=== PATIENT | male | born 1980 | race Caucasian/White ===

== ENCOUNTER 2016-09-28 19:32 | Emergency (ER) | payer MEDICAID ==
--- NOTE | 2016-09-28 19:56 | ERPHSYRPT ---
- History of Present Illness Time Seen by Provider: 09/28/16 19:48 Source: patient Exam Limitations: no limitations Patient Subjective Stated Complaint: pt states he has been having pain inhis shoulder and numbness in his lower arm and hand sine approx 0500. denies any recent injury Triage Nursing Assessment: pt alert and oriented, answsers questions approp. pt ambulatory with steady gain noted. respirations nonlabored with lungs cta. pt reports pain in rt shoulder with numbness in rt lower arm and hand. radial pulse and cap refill wnl. rom in rt shoulder, rt arm, and hand wnl. Physician History: pt states he has been having pain inhis shoulder and numbness in his lower arm and hand sine approx 0500. denies any recent injury. no headache, no nausea, vomiting fever, Occurred: this morning Method of Injury: unknown Quality: constant Severity of Pain-Max: mild Severity of Pain-Current: mild Extremities Pain Location: hand: right (tingling and numbness) Modifying Factors: Improves With: nothing Associated Symptoms: none Allergies/Adverse Reactions: cyclobenzaprine [From Flexeril] Allergy (Mild, Verified 09/28/16 19:47) Nausea ketorolac [From Toradol] Allergy (Mild, Verified 09/28/16 19:47) Nausea mirtazapine [From Remeron] Adverse Reaction (Mild, Verified 09/28/16 19:47) DRY HEAVE Home Medications: Divalproex Sodium [Depakote] 500 mg PO BID 11/28/15 [History] Alprazolam 1 mg [Xanax 1 mg] 1 mg PO TIDPRN 02/28/16 [History] Gabapentin [Neurontin] 800 mg PO TID 02/28/16 [History] Hx Tetanus, Diphtheria Vaccination/Date Given: Yes Hx Influenza Vaccination/Date Given: No Hx Pneumococcal Vaccination/Date Given: No Immunizations Up to Date: Yes - Review of Systems Constitutional: No Symptoms Eyes: No Symptoms Ears, Nose, & Throat: No Symptoms Respiratory: No Symptoms Cardiac: No Symptoms Abdominal/Gastrointestinal: No Symptoms Musculoskeletal: Neck Pain Skin: No Symptoms Neurological: Other (tingling on right hand) - Past Medical History Pertinent Past Medical History: No Neurological History: No Pertinent History ENT History: No Pertinent History Cardiac History: No Pertinent History Respiratory History: No Pertinent History Endocrine Medical History: No Pertinent History Musculoskeletal History: Arthritis, Degenerative Disk Disease GI Medical History: Ulcer History: No Pertinent History Psycho-Social History: Anxiety, Bipolar, Depression Male Reproductive Disorders: No Pertinent History Other Medical History: CHRONIC DRUG ABUSER - Past Surgical History Past Surgical History: No Neuro Surgical History: No Pertinent History Cardiac: No Pertinent History Respiratory: No Pertinent History Gastrointestinal: No Pertinent History Genitourinary: No Pertinent History Musculoskeletal: No Pertinent History Male Surgical History: Vasectomy Other Surgical History: vasectomy - Social History Smoking Status: Current every day smoker How long have you smoked: 20 years Exposure to second hand smoke: Yes Alcohol Use: Socially Drug Use: marijuana, methamphetamines, narcotics Patient Lives Alone: No Significant Family History: no pertinent family hx - Nursing Vital Signs Nursing Vital Signs: Initial Vital Signs Temperature 97.5 F Temperature Source Oral Pulse Rate 101 Respiratory Rate 18 Blood Pressure [Left Arm] 128/81 Pain Intensity 6 - Physical Exam General Appearance: no apparent distress Eyes, Ears, Nose, Throat Exam: normal ENT inspection Neck Exam: normal inspection Cardiovascular/Respiratory Exam: chest non-tender Shoulder Exam: normal inspection, non-tender, no evidence of injury Hand Exam: normal inspection, no evidence of injury Neuro/Tendon Exam: normal sensation, normal motor functions, normal tendon functions, no evidence tendon injury, No motor deficit, No sensory deficit, No no response to pain, No withdraws to pain, No tendon function deficit, No tendon injury visualized Mental Status Exam: alert, oriented x 3, cooperative SpO2: 99 Oxygen Delivery: Room Air - Course Nursing assessment & vital signs reviewed: Yes Ordered Tests: Medication Summary Discontinued Medications Generic Name Dose Route Start Last Admin Trade Name Ruddy PRN Reason Stop Dose Admin Orphenadrine Citrate 60 mg 09/28/16 20:01 09/28/16 20:05 Norflex 60 Mg/2 Ml IM 09/28/16 20:02 60 mg STAT ONE Administration Orphenadrine Citrate Confirm 09/28/16 20:04 Norflex 60 Mg/2 Ml Administered 09/28/16 20:05 Dose 60 mg .ROUTE .STK-MED ONE - Progress Progress: unchanged Counseled pt/family regarding: diagnosis, need for follow-up - Departure Time of Disposition: 20:00 Departure Disposition: Home Clinical Impression: Numbness and tingling in right hand Condition: Stable Critical Care Time: No Referrals: BOURGASSER,GENE A [Primary Care Provider] - Followup in 3 days w/ PCP Additional Instructions: Continue all your home medications. gabapentin should help relieve your tingling in your right hand. follow up with Dr Hua on saturday
[2016-09-28] MEDS ORDERED: Norflex 60 MG/2 ML IM ONE (20:01)
[2016-09-28] MEDS ORDERED: Norflex 60 MG/2 ML ONE (20:04)
[2016-09-28 20:25] VITALS: BP 134/64; PULSE 102; O2SAT 98
== END 2016-09-28 20:25 | disposition home or self-care (01) ==
LOC: ED 19:32
DX: R20.0 Anesthesia of skin (principal); R20.2 Paresthesia of skin
CPT/HCPCS: 96372; 99284; J2360

== ENCOUNTER 2017-07-01 13:34 | Emergency (ER) | payer OTHER ==
[2017-07-01 13:49] VITALS: PULSE 120; O2SAT 98
--- NOTE | 2017-07-01 14:12 | ERPHSYRPT ---
- History of Present Illness Time Seen by Provider: 07/01/17 13:53 Source: patient Patient Subjective Stated Complaint: Pt states "My fiance was in here last night and was advised she had some kind of STD and I want to get tested to find out what is going on." Triage Nursing Assessment: Pt alert and oriented X 3, skin pwd. pt ambulates without difficulty, able to speak in clear full sentences. PT anxious and slightly aggitated. Physician History: CC: STI exposure Hx: 36 y/o patient of Dr Hoff states his fiance was diagnosed last night with STI. Dr Hoff told him to go to urgent care. They sent him here. He has no symptoms. No hx of STI. 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 GF texted him she had trich. Allergies/Adverse Reactions: cyclobenzaprine [From Flexeril] Allergy (Mild, Verified 09/28/16 19:47) Nausea ketorolac [From Toradol] Allergy (Mild, Verified 09/28/16 19:47) Nausea mirtazapine [From Remeron] Adverse Reaction (Mild, Verified 09/28/16 19:47) DRY HEAVE Home Medications: Divalproex Sodium [Depakote] 500 mg PO BID 11/28/15 [History] Gabapentin [Neurontin] 800 mg PO TID 02/28/16 [History] Hx Tetanus, Diphtheria Vaccination/Date Given: Yes Hx Influenza Vaccination/Date Given: No Hx Pneumococcal Vaccination/Date Given: No Immunizations Up to Date: Yes - Past Medical History Pertinent Past Medical History: Yes Neurological History: No Pertinent History ENT History: No Pertinent History Cardiac History: No Pertinent History Respiratory History: No Pertinent History Endocrine Medical History: No Pertinent History Musculoskeletal History: Arthritis, Degenerative Disk Disease GI Medical History: Ulcer History: No Pertinent History Psycho-Social History: Anxiety, Bipolar, Depression Male Reproductive Disorders: No Pertinent History Other Medical History: CHRONIC DRUG ABUSER. panic anxiety - Past Surgical History Past Surgical History: No Neuro Surgical History: No Pertinent History Cardiac: No Pertinent History Respiratory: No Pertinent History Gastrointestinal: No Pertinent History Genitourinary: No Pertinent History Musculoskeletal: No Pertinent History Male Surgical History: Vasectomy Other Surgical History: vasectomy - Social History Smoking Status: Current every day smoker How long have you smoked: years Exposure to second hand smoke: Yes Alcohol Use: Socially Drug Use: marijuana, methamphetamines, narcotics Patient Lives Alone: No Significant Family History: no pertinent family hx - Review of Systems Constitutional: No Fever, No Chills Abdominal/Gastrointestinal: No Abdominal Pain Genitourinary Symptoms: No Dysuria, No Testicle Pain, No Penile Discharge Skin: No Rash - Nursing Vital Signs Nursing Vital Signs: Initial Vital Signs Temperature 98.4 F 07/01/17 13:44 Pulse Rate 120 H 07/01/17 13:44 Respiratory Rate 18 07/01/17 13:44 Blood Pressure 153/88 07/01/17 13:44 O2 Sat by Pulse Oximetry 98 07/01/17 13:44 Pain Scale Pain Intensity 0 - Physical Exam General Appearance: alert Eye Exam: PERRL/EOMI Ears, Nose, Throat Exam: moist mucous membranes Neck Exam: supple Respiratory Exam: normal breath sounds Cardiovascular Exam: regular rate/rhythm Gastrointestinal/Abdomen Exam: soft, No tenderness, No distention Male Genital Exam: normal genitalia, no hernia, epididymal tenderness (mild right), circumcised, No testicular tenderness (R), No testicular tenderness (L) , No urethral discharge Back Exam: normal inspection Extremity Exam: normal inspection, normal range of motion Neurologic Exam: alert, oriented x 3, cooperative Skin Exam: warm, dry, No rash SpO2 Interpretation: normal SpO2: 98 Oxygen Delivery: Room Air - Course Nursing assessment & vital signs reviewed: Yes - Progress Progress Note: 07/01/17 14:09 He will be treated for trich and will have high risk lab profile. Counseled pt/family regarding: diagnosis, need for follow-up - Departure Time of Disposition: 14:09 Departure Disposition: Home Clinical Impression: Trichomonas exposure Condition: Stable Critical Care Time: No Referrals: CHAD HOFF MD [Primary Care Provider] - Instructions: Trichomoniasis, Sexually-Transmitted Diseases (DC), STD Prevention Additional Instructions: No intercourse until you and partner treated. Rx flagyl. No alcohol products while taking this medication. Prescriptions: Metronidazole 500 mg [Flagyl 500 MG] 500 mg PO BID #14 tablet
[2017-07-01 14:30] VITALS: BP 138/82
[2017-07-02 13:26] LABS: RPR Nonreactive (Nonreactive)
== END 2017-07-01 14:30 | disposition home or self-care (01) ==
LOC: ED 13:34
DX: Z20.2 Contact with and (suspected) exposure to infections with a predominantly sexual mode of transmission (principal)
CPT/HCPCS: 86317; 86592; 86701; 86702; 86803; 87340; 87389; 87491; 87591; 99283

== ENCOUNTER 2018-09-07 18:51 | Observation (INO) | payer OTHER ==
[2018-09-07] MEDS ORDERED: Haldol 5 MG ONE (18:54)
[2018-09-07] MEDS ORDERED: Haldol 5 MG IM ONE (18:57)
[2018-09-07] MEDS ORDERED: Sodium Chloride 0.9% 1000 ML 1,000 ML IV STA (19:12)
[2018-09-07] MEDS ORDERED: THIAMINE 200 MG/2 ML IV ONE (19:13)
[2018-09-07] MEDS ORDERED: THIAMINE 200 MG/2 ML ONE (19:18)
[2018-09-07] MEDS ORDERED: Sodium Chloride 0.9% 1000 ML 1,000 ML ONE (19:18)
--- NOTE | 2018-09-07 19:19 | ERPHSYRPT ---
- History of Present Illness Time Seen by Provider: 09/07/18 19:10 Source: EMS Exam Limitations: clinical condition Physician History: 37-year-old white male with history of arthritis, degenerative disc disease chronic drug abuse anxiety, bipolar disorder, panic disorder. Patient brought by medics patient apparently was picked up at his residence that he wanted to go to [facility] he states apparently told them that he drank a half a gallon of alcohol shot up some drugs. Patient apparently became combative once in the ambulance. Patient on arrival was combative he was given 5 mg of Haldol Currently the patient is restrained. He will not answer when I talk tohim. Past medical history includes arthritis, degenerative disc disease, ulcers, chronic drug abuse, anxiety, bipolar disorder, panic disorder Past surgical history includes vasectomy Timing/Duration: today Severity: moderate Modifying Factors: Improves With: other (patient told medics that he drank a half a gallon of alcohol and shot up drugs, received 5 mg of Haldol IM on arrival) Associated Symptoms: other (patient stated he had been drinking alcohol and doing drugs), No nausea, No vomiting, No abdominal pain, No shortness of breath , No heartburn, No diaphoresis, No cough, No chills, No chest pain, No fever, No headaches, No loss of appetite, No malaise, No rash, No syncope, No seizure, No weakness Allergies/Adverse Reactions: cyclobenzaprine [From Flexeril] Allergy (Mild, Verified 02/11/18 05:12) Nausea ketorolac [From Toradol] Allergy (Mild, Verified 02/11/18 05:12) Nausea mirtazapine [From Remeron] Adverse Reaction (Mild, Verified 02/11/18 05:12) DRY HEAVE Home Medications: No Reportable Medications [No Reported Medications] 02/11/18 [History] Hx Tetanus, Diphtheria Vaccination/Date Given: Yes (2012) Hx Influenza Vaccination/Date Given: No Hx Pneumococcal Vaccination/Date Given: No - Review of Systems Constitutional: No Fever, No Chills Eyes: No Symptoms Ears, Nose, & Throat: No Symptoms Respiratory: No Cough, No Dyspnea Cardiac: No Chest Pain, No Edema, No Syncope Abdominal/Gastrointestinal: No Abdominal Pain, No Nausea, No Vomiting, No Diarrhea Genitourinary Symptoms: No Dysuria Musculoskeletal: No Back Pain, No Neck Pain Skin: No Rash Neurological: No Dizziness, No Focal Weakness, No Sensory Changes Psychological: Alcohol Abuse, Drug Abuse, Anxiety Endocrine: No Symptoms All Other Systems: Reviewed and Negative - Past Medical History Pertinent Past Medical History: Yes Neurological History: No Pertinent History ENT History: No Pertinent History Cardiac History: No Pertinent History Respiratory History: No Pertinent History Endocrine Medical History: No Pertinent History Musculoskeletal History: Arthritis, Degenerative Disk Disease GI Medical History: Ulcer History: No Pertinent History Psycho-Social History: Anxiety, Bipolar, Depression Male Reproductive Disorders: No Pertinent History Other Medical History: CHRONIC DRUG ABUSER. panic anxiety - Past Surgical History Past Surgical History: No Neuro Surgical History: No Pertinent History Cardiac: No Pertinent History Respiratory: No Pertinent History Gastrointestinal: No Pertinent History Genitourinary: No Pertinent History Musculoskeletal: No Pertinent History Male Surgical History: Vasectomy Other Surgical History: vasectomy - Social History Smoking Status: Current every day smoker How long have you smoked: years Exposure to second hand smoke: Yes Alcohol Use: Socially Drug Use: marijuana, methamphetamines, narcotics, other Patient Lives Alone: No Significant Family History: no pertinent family hx - Nursing Vital Signs Nursing Vital Signs: Initial Vital Signs Pulse Rate 104 H 09/07/18 18:58 Respiratory Rate 18 09/07/18 18:58 Blood Pressure 112/90 09/07/18 18:58 O2 Sat by Pulse Oximetry 94 L 09/07/18 18:58 - Physical Exam General Appearance: other (well-developed white male restrained, will not answer me) Eye Exam: PERRL/EOMI, eyes nml inspection Ears, Nose, Throat Exam: normal ENT inspection, TMs normal, pharynx normal, moist mucous membranes Neck Exam: normal inspection, non-tender, supple, full range of motion Respiratory Exam: normal breath sounds, lungs clear, No respiratory distress Cardiovascular Exam: regular rate/rhythm, normal heart sounds, normal peripheral pulses, capillary refill <2 sec Gastrointestinal/Abdomen Exam: soft, normal bowel sounds, No tenderness, No mass Back Exam: normal inspection, normal range of motion, No CVA tenderness, No vertebral tenderness Extremity Exam: normal inspection, normal range of motion, pelvis stable Neurologic Exam: alert, oriented x 3, cooperative, structural fitter II-XII nml as tested, normal mood/affect, nml cerebellar function, nml station & gait, sensation nml, No motor deficits Skin Exam: normal color, warm, dry, No rash Lymphatic Exam: No adenopathy SpO2 Interpretation: normal (93%) - Course Nursing assessment & vital signs reviewed: Yes EKG Interpreted by Me: RATE (103 bpm), Sinus Tach, NORMAL AXIS, Other (EKG: Sinus tachycardia, 103 bpm, normal axis, no acute ST or T wave changes noted) Ordered Tests: Active Orders 24 hr Category Date Time Status EKG-ER Only STAT Care 09/07/18 19:12 Active IV Insertion STAT Care 09/07/18 19:12 Active Pulse Oximetry (ED) STAT Care 09/07/18 19:12 Active ACETAMINOPHEN Stat Lab 09/07/18 19:19 Completed CBC W DIFF Stat Lab 09/07/18 19:19 Completed CMP Stat Lab 09/07/18 19:19 Completed ETHYL ALCOHOL Stat Lab 09/07/18 19:19 Completed SALICYLATE Stat Lab 09/07/18 19:10 Completed UA W/RFX UR CULTURE Stat Lab 09/07/18 19:42 Completed Urine Triage Profile Stat Lab 09/07/18 19:42 Completed Medication Summary Discontinued Medications Generic Name Dose Route Start Last Admin Trade Name Freq PRN Reason Stop Dose Admin Haloperidol Lactate Confirm 09/07/18 18:54 Haldol 5 Mg Administered 09/07/18 18:55 Dose 5 mg .ROUTE .STK-MED ONE Haloperidol Lactate 5 mg 09/07/18 18:57 09/07/18 18:58 Haldol 5 Mg IM 09/07/18 18:58 5 mg STAT ONE Administration Sodium Chloride 1,000 mls @ 999 mls/hr 09/07/18 19:12 09/07/18 20:23 Sodium Chloride 0.9% 1000 Ml IV 09/07/18 20:12 Infused .Q1H1M STA Infusion Sodium Chloride Confirm 09/07/18 19:18 Sodium Chloride 0.9% 1000 Ml Administered 09/07/18 19:19 Dose 1,000 mls @ ud .ROUTE .STK-MED ONE Thiamine HCl 100 mg 09/07/18 19:13 09/07/18 19:23 Thiamine 200 Mg/2 Ml IV 09/07/18 19:14 100 mg STAT ONE Administration Thiamine HCl Confirm 09/07/18 19:18 Thiamine 200 Mg/2 Ml Administered 09/07/18 19:19 Dose 200 mg .ROUTE .STK-MED ONE Lab/Rad Data: Laboratory Result Diagrams 09/07/18 19:19 09/07/18 19:19 Laboratory Results 09/07/18 09/07/18 09/07/18 Range/Units 19:42 19:42 19:19 WBC (4.0-10.5) K/mm3 RBC (4.1-5.6) M/mm3 Hgb (12.5-18.0) gm/dl Hct (42-50) % MCV (78-100) fl MCH (26-32) pg MCHC (32-36) g/dl RDW (11.5-14.0) % Plt Count (150-450) K/mm3 MPV (6-9.5) fl Gran % (36.0-66.0) % Eos # (Auto) (0-0.5) Absolute Lymphs (auto) (1.0-4.6) Absolute Monos (auto) (0.0-1.3) Lymphocytes % (24.0-44.0) % Monocytes % (0.0-12.0) % Eosinophils % (0.00-5.0) % Basophils % (0.0-0.4) % Absolute Granulocytes (1.4-6.9) Basophils # (0-0.4) Sodium 144 (137-145) mmol/L Potassium 3.8 (3.5-5.1) mmol/L Chloride 109 H (98-107) mmol/L Carbon Dioxide 16 L* (22-30) mmol/L Anion Gap 22.9 H (5-15) MEQ/L BUN 12 (9-20) mg/dL Creatinine 0.84 (0.66-1.25) mg/dL Estimated GFR > 60.0 ML/MIN Glucose 102 (74-106) mg/dL Calcium 9.5 (8.4-10.2) mg/dL Total Bilirubin 0.50 (0.2-1.3) mg/dL AST 34 (17-59) U/L ALT 58 H (0-50) U/L Alkaline Phosphatase 55 (38-126) U/L Serum Total Protein 8.8 H (6.3-8.2) g/dL Albumin 4.9 (3.5-5.0) g/dL Urine Color YELLOW (YELLOW) Urine Appearance CLEAR (CLEAR) Urine pH 6.0 (5-6) Ur Specific [place] 1.009 (1.005-1.025) Urine Protein NEGATIVE (Negative) Urine Ketones NEGATIVE (NEGATIVE) Urine Blood MODERATE (0-5) Damon/ul Urine Nitrite NEGATIVE (NEGATIVE) Urine Bilirubin NEGATIVE (NEGATIVE) Urine Urobilinogen NEGATIVE (0-1) mg/dL Ur Leukocyte Esterase NEGATIVE (NEGATIVE) Urine WBC (Auto) 0-2 (0-5) /HPF Urine RBC (Auto) 3-5 (0-2) /HPF U Hyaline Cast (Auto) 3-5 (0-2) /LPF U Epithel Cells (Auto) NONE (FEW) /HPF Urine Bacteria (Auto) NONE (NEGATIVE) /HPF Urine Mucus (Auto) SLIGHT (NEGATIVE) /HPF Urine Culture Reflexed NO (NO) Urine Glucose NEGATIVE (NEGATIVE) mg/dL Salicylates (2-20) mg/dL Urine Opiates Level NEGATIVE (NEGATIVE) Ur Methadone NEGATIVE (NEGATIVE) Acetaminophen 23 (10-30) ug/ml Urine Barbiturates NEGATIVE (NEGATIVE) Ur Phencyclidine (PCP) NEGATIVE (NEGATIVE) Urine Amphetamine NEGATIVE (NEGATIVE) U Benzodiazepine Level NEGATIVE (NEGATIVE) Urine Cocaine NEGATIVE (NEGATIVE) Urine Marijuana (THC) NEGATIVE (NEGATIVE) Ethyl Alcohol 283 H (0-10) mg/dL 09/07/18 09/07/18 Range/Units 19:19 19:10 WBC 10.6 H (4.0-10.5) K/mm3 RBC 5.11 (4.1-5.6) M/mm3 Hgb 17.1 (12.5-18.0) gm/dl Hct 48.9 (42-50) % MCV 95.7 (78-100) fl MCH 33.5 H (26-32) pg MCHC 35.0 (32-36) g/dl RDW 12.5 (11.5-14.0) % Plt Count 267 (150-450) K/mm3 MPV 9.4 (6-9.5) fl Gran % 42.6 (36.0-66.0) % Eos # (Auto) 0.43 (0-0.5) Absolute Lymphs (auto) 4.97 H (1.0-4.6) Absolute Monos (auto) 0.65 (0.0-1.3) Lymphocytes % 46.9 H (24.0-44.0) % Monocytes % 6.1 (0.0-12.0) % Eosinophils % 4.1 (0.00-5.0) % Basophils % 0.3 (0.0-0.4) % Absolute Granulocytes 4.51 (1.4-6.9) Basophils # 0.03 (0-0.4) Sodium (137-145) mmol/L Potassium (3.5-5.1) mmol/L Chloride (98-107) mmol/L Carbon Dioxide (22-30) mmol/L Anion Gap (5-15) MEQ/L BUN (9-20) mg/dL Creatinine (0.66-1.25) mg/dL Estimated GFR ML/MIN Glucose (74-106) mg/dL Calcium (8.4-10.2) mg/dL Total Bilirubin (0.2-1.3) mg/dL AST (17-59) U/L ALT (0-50) U/L Alkaline Phosphatase (38-126) U/L Serum Total Protein (6.3-8.2) g/dL Albumin (3.5-5.0) g/dL Urine Color (YELLOW) Urine Appearance (CLEAR) Urine pH (5-6) Ur Specific [place] (1.005-1.025) Urine Protein (Negative) Urine Ketones (NEGATIVE) Urine Blood (0-5) Damon/ul Urine Nitrite (NEGATIVE) Urine Bilirubin (NEGATIVE) Urine Urobilinogen (0-1) mg/dL Ur Leukocyte Esterase (NEGATIVE) Urine WBC (Auto) (0-5) /HPF Urine RBC (Auto) (0-2) /HPF U Hyaline Cast (Auto) (0-2) /LPF U Epithel Cells (Auto) (FEW) /HPF Urine Bacteria (Auto) (NEGATIVE) /HPF Urine Mucus (Auto) (NEGATIVE) /HPF Urine Culture Reflexed (NO) Urine Glucose (NEGATIVE) mg/dL Salicylates < 1.0 L (2-20) mg/dL Urine Opiates Level (NEGATIVE) Ur Methadone (NEGATIVE) Acetaminophen (10-30) ug/ml Urine Barbiturates (NEGATIVE) Ur Phencyclidine (PCP) (NEGATIVE) Urine Amphetamine (NEGATIVE) U Benzodiazepine Level (NEGATIVE) Urine Cocaine (NEGATIVE) Urine Marijuana (THC) (NEGATIVE) Ethyl Alcohol (0-10) mg/dL - Progress Progress: improved Progress Note: 09/07/18 20:51 37-year-old white male with history of arthritis, degenerative disc disease, chronic drug use, anxiety, bipolar depression, panic disorder Patient apparently had drank a half a gallon of alcohol and apparently had told the medics that he had shot up with some drugs he was wanting to go to [facility]. Patient apparently became combative in the ambulance.. Patient was given Haldol upon arrival 5 mg IM. Patient has been quiet and does not appear to be in acute distress. Patient did have a bicarbonate level of 16 blood alcohol level was 283 Patient with an EKG which shows sinus tachycardia 103 bpm normal axis no acute ST or T wave changes essentially normal EKG. Patient has been stable he was restrained on arrival . I contacted Dr. Hoff who is button station worker tonight he requests that the patient be placed ICU observation Dr. Howard as the attending. Will place patient on ICU continue IV normal saline write for Ativan when necessary anxiety. May restrain for patient's own protection. Impression 1 alcohol intoxication. 2 possible drug ingestion. 3 combative behavior. - Departure Departure Disposition: Observation Clinical Impression: possible drug ingestion, Combative behavior Alcohol intoxication Qualifiers: Complication of substance-induced condition: uncomplicated Qualified Code(s): F10.920 - Alcohol use, unspecified with intoxication, uncomplicated Condition: Fair Critical Care Time: No Referrals: CHAD HOFF MD [Primary Care Provider] -
[2018-09-07 19:38] LABS: ACETAMINOPHEN 23 ug/ml (10-30); ALBUMIN 4.9 g/dL (3.5-5.0); ALKALINE PHOSPHATASE 55 U/L (38-126); ANION GAP 22.9 MEQ/L (5-15); BLOOD UREA NITROGEN 12 mg/dL (9-20); CHLORIDE 109 mmol/L (98-107); Calcium 9.5 mg/dL (8.4-10.2); Creatinine 1 0.84 mg/dL (0.66-1.25); ETHYL ALCOHOL 283 mg/dL (0-10); Glucose 102 mg/dL (74-106); Potassium 3.8 mmol/L (3.5-5.1); SGOT/AST 34 U/L (17-59); SGPT/ALT 58 U/L (0-50); SODIUM 144 mmol/L (137-145); Total Protein 8.8 g/dL (6.3-8.2)
[2018-09-07 19:39] LABS: BASOPHIL % 0.3 % (0.0-0.4); Basophil (Absolute #) 0.03 (0-0.4); Eosinophil % 4.1 % (0.00-5.0); Eosinophil (Absolute #) 0.43 (0-0.5); Granulocyte Absolute (ANC) 4.51 (1.4-6.9); Granulocytes % 42.6 % (36.0-66.0); Hematocrit 48.9 % (42-50); Hemoglobin 17.1 gm/dl (12.5-18.0); Lymphocyte (Absolute #) 4.97 (1.0-4.6); Lymphocytes % 46.9 % (24.0-44.0); Mean Cell Volume 95.7 fl (78-100); Mean Corpuscular Hemoglobin 33.5 pg (26-32); Mean Platelet Volume 9.4 fl (6-9.5); Monocyte (Absolute #) 0.65 (0.0-1.3); Monocytes % 6.1 % (0.0-12.0); Platelet Count 267 K/mm3 (150-450); Red Blood Count 5.11 M/mm3 (4.1-5.6); Red Cell Distribution Width 12.5 % (11.5-14.0); White Blood Count 10.6 K/mm3 (4.0-10.5)
[2018-09-07 19:46] LABS: Carbon Dioxide 16 mmol/L (22-30)
[2018-09-07 20:02] LABS: Amphetamine,Urine NEGATIVE (NEGATIVE); Barbiturate,Urine NEGATIVE (NEGATIVE); Cocaine,Urine NEGATIVE (NEGATIVE); Methadone,Urine NEGATIVE (NEGATIVE); Opiate,Urine NEGATIVE (NEGATIVE); PCP,Urine NEGATIVE (NEGATIVE); THC,Urine NEGATIVE (NEGATIVE)
[2018-09-07 20:05] LABS: Appearance CLEAR (CLEAR); Bilirubin NEGATIVE (NEGATIVE); Blood MODERATE Ery/ul (0-5); Glucose NEGATIVE (NEGATIVE); Ketones NEGATIVE (NEGATIVE); Leukocyte Esterase NEGATIVE (NEGATIVE); Mucus SLIGHT /HPF (NEGATIVE); Nitrite NEGATIVE (NEGATIVE); Protein,Urine Dip NEGATIVE (Negative); Specific Gravity 1.009 (1.005-1.025); Urobilinogen NEGATIVE mg/dL (0-1); WBC 0-2 /HPF (0-5)
[2018-09-07 20:10] LABS: Benzodiazepine,Urine NEGATIVE (NEGATIVE)
[2018-09-07 22:39] LABS: ETHYL ALCOHOL 222 mg/dL (0-10)
[2018-09-07 22:43] LABS: ACETAMINOPHEN < 10 ug/ml (10-30)
[2018-09-07] MEDS: Ativan 2 MG/1 ML VIAL IV PRN (22:55)
[2018-09-07] MEDS: Sodium Chloride 0.9% 1000 ML 1,000 ML IV SCH (22:56)
[2018-09-08 03:31] VITALS: BP 98/63; O2SAT 96
[2018-09-08 05:25] LABS: BASOPHIL % 0.2 % (0.0-0.4); Basophil (Absolute #) 0.02 (0-0.4); Eosinophil % 5.3 % (0.00-5.0); Eosinophil (Absolute #) 0.45 (0-0.5); Granulocyte Absolute (ANC) 3.35 (1.4-6.9); Granulocytes % 39.5 % (36.0-66.0); Hemoglobin 15.5 gm/dl (12.5-18.0); Lymphocyte (Absolute #) 4.16 (1.0-4.6); Mean Cell Volume 97.3 fl (78-100); Mean Corpuscular Hemoglobin 32.8 pg (26-32); Mean Corpuscular Hgb Concent. 33.7 g/dl (32-36); Mean Platelet Volume 9.1 fl (6-9.5); Monocyte (Absolute #) 0.51 (0.0-1.3); Platelet Count 203 K/mm3 (150-450); Red Blood Count 4.73 M/mm3 (4.1-5.6); Red Cell Distribution Width 12.7 % (11.5-14.0); White Blood Count 8.5 K/mm3 (4.0-10.5)
[2018-09-08] MEDS: Sodium Chloride 0.9% 1000 ML 1,000 ML IV SCH (05:32)
[2018-09-08] MEDS: Ativan 2 MG/1 ML VIAL IV PRN (05:33)
[2018-09-08 05:57] LABS: ALBUMIN 4.1 g/dL (3.5-5.0); ALKALINE PHOSPHATASE 41 U/L (38-126); ANION GAP 14.2 MEQ/L (5-15); BLOOD UREA NITROGEN 8 mg/dL (9-20); CHLORIDE 113 mmol/L (98-107); Calcium 8.8 mg/dL (8.4-10.2); Carbon Dioxide 22 mmol/L (22-30); Creatinine 1 0.69 mg/dL (0.66-1.25); ETHYL ALCOHOL 102 mg/dL (0-10); Glucose 83 mg/dL (74-106); Potassium 4.2 mmol/L (3.5-5.1); SGOT/AST 38 U/L (17-59); SGPT/ALT 53 U/L (0-50); SODIUM 145 mmol/L (137-145); Total Protein 7.3 g/dL (6.3-8.2)
[2018-09-08 07:31] VITALS: PULSE 70
--- NOTE | 2018-09-08 08:48 | PCM.SSS ---
History of Present Illness - Chief Complaint Chief Complaint: Alcohol Intoxication/Possible drug ingestion, combative behavior History of Present Illness: is a 37 year old male with a history of chronic alcohol and drug abuse, he has been in recovery and reports that he drank a large amount of alcohol last night, reports he "fell of the wagon" there was no intent to harm himself, he denies any drug use. attends and has a counselor who visits him at home and will actually be seeing him today. he feels well this morning, he is alert and cooperative and regrets his decision to drink alcohol last night. - Review of Systems Constitutional: No Fever, No Chills Eyes: No Symptoms Respiratory: No Cough, No Short Of Breath Cardiac: No Chest Pain, No Edema, No Syncope Abdominal/Gastrointestinal: No Abdominal Pain, No Nausea, No Vomiting, No Diarrhea Genitourinary Symptoms: No Dysuria Skin: No Rash All Other Systems: Reviewed and Negative Medications & Allergies Home Medications: Home Medication List Diphenhydramine HCl 25 mg [Benadryl 25 mg Capsule] 50 mg PO TID 09/08/18 [ History Confirmed 09/08/18] Famotidine 20 mg [Pepcid 20 MG] 20 mg PO BID 09/08/18 [History Confirmed 09/08/18] Fluoxetine HCl [Prozac] 40 mg PO DAILY 09/08/18 [History Confirmed 09/08/18] Gabapentin 400 mg [Neurontin 400 MG] 400 mg PO TID 09/08/18 [History Confirmed 09/08/18] Quetiapine Fumarate [Seroquel] 100 mg PO BID 09/08/18 [History Confirmed ] Trazodone HCl 50 mg [Desyrel 50 mg] 50 mg PO HS 09/08/18 [History Confirmed 09/08/18] Allergies/Adverse Reactions: Allergies Allergy/AdvReac Type Severity Reaction Status Date / Time cyclobenzaprine Allergy Mild Nausea Verified 02/11/18 05:12 [From Flexeril] ketorolac [From Toradol] Allergy Mild Nausea Verified 02/11/18 05:12 mirtazapine [From Remeron] AdvReac Mild DRY HEAVE Verified 02/11/18 05:12 - Past Medical History Past Medical History: Yes Neurological History: No Pertinent History ENT History: No Pertinent History Cardiac History: No Pertinent History Respiratory History: No Pertinent History Endocrine Medical History: No Pertinent History Musculoskelatal History: Arthritis, Degenerative Disk Disease GI Medical History: Ulcer History: No Pertinent History Pyscho-Social History: Anxiety, Bipolar, Depression Male Reproductive Disorders: No Pertinent History Comment: CHRONIC DRUG ABUSER. panic anxiety - Past Surgical History Past Surgical History: No Neuro Surgical History: No Pertinent History Cardiac History: No Pertinent History Respiratory Surgery: No Pertinent History GI Surgical History: No Pertinent History Genitourinary Surgical Hx: No Pertinent History Musculskeletal Surgical Hx: No Pertinent History Male Surgical History: Vasectomy Other Surgical History: vasectomy - Social History Smoking Status: Current every day smoker How long have you smoked: years Exposure to second hand smoke: Yes Alcohol: Heavy Drug Use: marijuana, methamphetamines, narcotics, other Significant Family History: no pertinent family hx - Physical Exam Vital Signs: Vital Signs - 24 hr Temp Pulse Resp BP Pulse Ox 09/08/18 07:31 97.7 F 70 20 98/63 96 09/08/18 04:00 96 H 14 09/08/18 03:30 98.2 F 96 H 14 98/63 96 09/08/18 00:36 86 17 98/53 95 09/08/18 00:01 80 09/07/18 21:56 97.8 F 86 17 98/53 95 09/07/18 21:55 97.8 F 81 18 98/61 96 09/07/18 21:15 70 14 102/68 95 09/07/18 21:09 98.0 F 73 16 110/67 96 09/07/18 20:45 72 14 108/67 95 09/07/18 20:30 84 14 104/66 94 L 09/07/18 20:15 84 14 111/63 95 09/07/18 20:00 100 H 14 113/66 94 L 09/07/18 19:48 94 H 20 109/65 95 09/07/18 19:30 100 H 16 121/63 94 L 09/07/18 19:16 93 L 09/07/18 18:58 104 H 18 112/90 94 L General Appearance: no apparent distress, alert Neurologic Exam: alert, oriented x 3, cooperative, normal mood/affect, nml cerebellar function, nml station & gait, sensation nml, No motor deficits Eye Exam: PERRL/EOMI, eyes nml inspection Respiratory Exam: normal breath sounds, lungs clear, No respiratory distress Cardiovascular Exam: regular rate/rhythm, normal heart sounds, normal peripheral pulses Gastrointestinal/Abdomen Exam: soft, normal bowel sounds, No tenderness, No mass Extremity Exam: normal inspection, normal range of motion, pelvis stable Skin Exam: normal color, warm, dry, No rash Results - Labs Lab/Micro Results: Lab Results-Last 24 Hours 09/07/18 09/07/18 09/07/18 Range/Units 19:10 19:19 19:19 WBC 10.6 H (4.0-10.5) K/mm3 RBC 5.11 (4.1-5.6) M/mm3 Hgb 17.1 (12.5-18.0) gm/dl Hct 48.9 (42-50) % MCV 95.7 (78-100) fl MCH 33.5 H (26-32) pg MCHC 35.0 (32-36) g/dl RDW 12.5 (11.5-14.0) % Plt Count 267 (150-450) K/mm3 MPV 9.4 (6-9.5) fl Gran % 42.6 (36.0-66.0) % Eos # (Auto) 0.43 (0-0.5) Absolute Lymphs (auto) 4.97 H (1.0-4.6) Absolute Monos (auto) 0.65 (0.0-1.3) Lymphocytes % 46.9 H (24.0-44.0) % Monocytes % 6.1 (0.0-12.0) % Eosinophils % 4.1 (0.00-5.0) % Basophils % 0.3 (0.0-0.4) % Absolute Granulocytes 4.51 (1.4-6.9) Basophils # 0.03 (0-0.4) Sodium 144 (137-145) mmol/L Potassium 3.8 (3.5-5.1) mmol/L Chloride 109 H (98-107) mmol/L Carbon Dioxide 16 L* (22-30) mmol/L Anion Gap 22.9 H (5-15) MEQ/L BUN 12 (9-20) mg/dL Creatinine 0.84 (0.66-1.25) mg/dL Estimated GFR > 60.0 ML/MIN Glucose 102 (74-106) mg/dL Calcium 9.5 (8.4-10.2) mg/dL Total Bilirubin 0.50 (0.2-1.3) mg/dL AST 34 (17-59) U/L ALT 58 H (0-50) U/L Alkaline Phosphatase 55 (38-126) U/L Serum Total Protein 8.8 H (6.3-8.2) g/dL Albumin 4.9 (3.5-5.0) g/dL Urine Color (YELLOW) Urine Appearance (CLEAR) Urine pH (5-6) Ur Specific [place] (1.005-1.025) Urine Protein (Negative) Urine Ketones (NEGATIVE) Urine Blood (0-5) Damon/ul Urine Nitrite (NEGATIVE) Urine Bilirubin (NEGATIVE) Urine Urobilinogen (0-1) mg/dL Ur Leukocyte Esterase (NEGATIVE) Urine WBC (Auto) (0-5) /HPF Urine RBC (Auto) (0-2) /HPF U Hyaline Cast (Auto) (0-2) /LPF U Epithel Cells (Auto) (FEW) /HPF Urine Bacteria (Auto) (NEGATIVE) /HPF Urine Mucus (Auto) (NEGATIVE) /HPF Urine Culture Reflexed (NO) Urine Glucose (NEGATIVE) mg/dL Salicylates < 1.0 L (2-20) mg/dL Urine Opiates Level (NEGATIVE) Ur Methadone (NEGATIVE) Acetaminophen 23 (10-30) ug/ml Urine Barbiturates (NEGATIVE) Ur Phencyclidine (PCP) (NEGATIVE) Urine Amphetamine (NEGATIVE) U Benzodiazepine Level (NEGATIVE) Urine Cocaine (NEGATIVE) Urine Marijuana (THC) (NEGATIVE) Ethyl Alcohol 283 H (0-10) mg/dL 09/07/18 09/07/18 09/07/18 Range/Units 19:42 19:42 22:26 WBC (4.0-10.5) K/mm3 RBC (4.1-5.6) M/mm3 Hgb (12.5-18.0) gm/dl Hct (42-50) % MCV (78-100) fl MCH (26-32) pg MCHC (32-36) g/dl RDW (11.5-14.0) % Plt Count (150-450) K/mm3 MPV (6-9.5) fl Gran % (36.0-66.0) % Eos # (Auto) (0-0.5) Absolute Lymphs (auto) (1.0-4.6) Absolute Monos (auto) (0.0-1.3) Lymphocytes % (24.0-44.0) % Monocytes % (0.0-12.0) % Eosinophils % (0.00-5.0) % Basophils % (0.0-0.4) % Absolute Granulocytes (1.4-6.9) Basophils # (0-0.4) Sodium (137-145) mmol/L Potassium (3.5-5.1) mmol/L Chloride (98-107) mmol/L Carbon Dioxide (22-30) mmol/L Anion Gap (5-15) MEQ/L BUN (9-20) mg/dL Creatinine (0.66-1.25) mg/dL Estimated GFR ML/MIN Glucose (74-106) mg/dL Calcium (8.4-10.2) mg/dL Total Bilirubin (0.2-1.3) mg/dL AST (17-59) U/L ALT (0-50) U/L Alkaline Phosphatase (38-126) U/L Serum Total Protein (6.3-8.2) g/dL Albumin (3.5-5.0) g/dL Urine Color YELLOW (YELLOW) Urine Appearance CLEAR (CLEAR) Urine pH 6.0 (5-6) Ur Specific [place] 1.009 (1.005-1.025) Urine Protein NEGATIVE (Negative) Urine Ketones NEGATIVE (NEGATIVE) Urine Blood MODERATE (0-5) Damon/ul Urine Nitrite NEGATIVE (NEGATIVE) Urine Bilirubin NEGATIVE (NEGATIVE) Urine Urobilinogen NEGATIVE (0-1) mg/dL Ur Leukocyte Esterase NEGATIVE (NEGATIVE) Urine WBC (Auto) 0-2 (0-5) /HPF Urine RBC (Auto) 3-5 (0-2) /HPF U Hyaline Cast (Auto) 3-5 (0-2) /LPF U Epithel Cells (Auto) NONE (FEW) /HPF Urine Bacteria (Auto) NONE (NEGATIVE) /HPF Urine Mucus (Auto) SLIGHT (NEGATIVE) /HPF Urine Culture Reflexed NO (NO) Urine Glucose NEGATIVE (NEGATIVE) mg/dL Salicylates (2-20) mg/dL Urine Opiates Level NEGATIVE (NEGATIVE) Ur Methadone NEGATIVE (NEGATIVE) Acetaminophen < 10 L (10-30) ug/ml Urine Barbiturates NEGATIVE (NEGATIVE) Ur Phencyclidine (PCP) NEGATIVE (NEGATIVE) Urine Amphetamine NEGATIVE (NEGATIVE) U Benzodiazepine Level NEGATIVE (NEGATIVE) Urine Cocaine NEGATIVE (NEGATIVE) Urine Marijuana (THC) NEGATIVE (NEGATIVE) Ethyl Alcohol 222 H (0-10) mg/dL 09/08/18 09/08/18 Range/Units 05:03 05:03 WBC 8.5 (4.0-10.5) K/mm3 RBC 4.73 (4.1-5.6) M/mm3 Hgb 15.5 (12.5-18.0) gm/dl Hct 46.0 (42-50) % MCV 97.3 (78-100) fl MCH 32.8 H (26-32) pg MCHC 33.7 (32-36) g/dl RDW 12.7 (11.5-14.0) % Plt Count 203 (150-450) K/mm3 MPV 9.1 (6-9.5) fl Gran % 39.5 (36.0-66.0) % Eos # (Auto) 0.45 (0-0.5) Absolute Lymphs (auto) 4.16 (1.0-4.6) Absolute Monos (auto) 0.51 (0.0-1.3) Lymphocytes % 49.0 H (24.0-44.0) % Monocytes % 6.0 (0.0-12.0) % Eosinophils % 5.3 H (0.00-5.0) % Basophils % 0.2 (0.0-0.4) % Absolute Granulocytes 3.35 (1.4-6.9) Basophils # 0.02 (0-0.4) Sodium 145 (137-145) mmol/L Potassium 4.2 (3.5-5.1) mmol/L Chloride 113 H (98-107) mmol/L Carbon Dioxide 22 (22-30) mmol/L Anion Gap 14.2 (5-15) MEQ/L BUN 8 L (9-20) mg/dL Creatinine 0.69 (0.66-1.25) mg/dL Estimated GFR > 60.0 ML/MIN Glucose 83 (74-106) mg/dL Calcium 8.8 (8.4-10.2) mg/dL Total Bilirubin 0.40 (0.2-1.3) mg/dL AST 38 (17-59) U/L ALT 53 H (0-50) U/L Alkaline Phosphatase 41 (38-126) U/L Serum Total Protein 7.3 (6.3-8.2) g/dL Albumin 4.1 (3.5-5.0) g/dL Urine Color (YELLOW) Urine Appearance (CLEAR) Urine pH (5-6) Ur Specific [place] (1.005-1.025) Urine Protein (Negative) Urine Ketones (NEGATIVE) Urine Blood (0-5) Damon/ul Urine Nitrite (NEGATIVE) Urine Bilirubin (NEGATIVE) Urine Urobilinogen (0-1) mg/dL Ur Leukocyte Esterase (NEGATIVE) Urine WBC (Auto) (0-5) /HPF Urine RBC (Auto) (0-2) /HPF U Hyaline Cast (Auto) (0-2) /LPF U Epithel Cells (Auto) (FEW) /HPF Urine Bacteria (Auto) (NEGATIVE) /HPF Urine Mucus (Auto) (NEGATIVE) /HPF Urine Culture Reflexed (NO) Urine Glucose (NEGATIVE) mg/dL Salicylates (2-20) mg/dL Urine Opiates Level (NEGATIVE) Ur Methadone (NEGATIVE) Acetaminophen (10-30) ug/ml Urine Barbiturates (NEGATIVE) Ur Phencyclidine (PCP) (NEGATIVE) Urine Amphetamine (NEGATIVE) U Benzodiazepine Level (NEGATIVE) Urine Cocaine (NEGATIVE) Urine Marijuana (THC) (NEGATIVE) Ethyl Alcohol 102 H (0-10) mg/dL Assessment/Plan (1) Alcohol intoxication Current Visit: Yes Status: Acute Qualifiers: Complication of substance-induced condition: uncomplicated Qualified Code(s ): F10.920 - Alcohol use, unspecified with intoxication, uncomplicated Assessment & Plan: plans to attend AA meetings again. offered [facility] consult today but he feels safe returning home and does not appear to be a risk of withdrawal since this is an isolated episode. he has counseling measures in place (2) Combative behavior Current Visit: Yes Status: Acute Code(s): R46.89 - OTHER SYMPTOMS AND SIGNS INVOLVING APPEARANCE AND BEHAVIOR (3) Bipolar disorder Current Visit: No Status: Acute Hospital Summary - Vitals & Intake/Output Vital Signs: Vital Signs Temperature 97.7 F 09/08/18 07:31 Pulse Rate 70 09/08/18 07:31 Respiratory Rate 20 09/08/18 07:31 Blood Pressure 98/63 09/08/18 07:31 O2 Sat by Pulse Oximetry 96 09/08/18 07:31 Intake & Output: Intake & Output 09/05/18 09/06/18 09/07/18 09/08/18 11:59 11:59 11:59 11:59 Intake Total 675 Balance 675 Weight 67.9 kg - Lab Result Diagrams: 09/08/18 05:03 09/08/18 05:03 Lab Results-Last 24 Hrs: Lab Results-Last 24 Hours 09/07/18 09/07/18 09/07/18 Range/Units 19:10 19:19 19:19 WBC 10.6 H (4.0-10.5) K/mm3 RBC 5.11 (4.1-5.6) M/mm3 Hgb 17.1 (12.5-18.0) gm/dl Hct 48.9 (42-50) % MCV 95.7 (78-100) fl MCH 33.5 H (26-32) pg MCHC 35.0 (32-36) g/dl RDW 12.5 (11.5-14.0) % Plt Count 267 (150-450) K/mm3 MPV 9.4 (6-9.5) fl Gran % 42.6 (36.0-66.0) % Eos # (Auto) 0.43 (0-0.5) Absolute Lymphs (auto) 4.97 H (1.0-4.6) Absolute Monos (auto) 0.65 (0.0-1.3) Lymphocytes % 46.9 H (24.0-44.0) % Monocytes % 6.1 (0.0-12.0) % Eosinophils % 4.1 (0.00-5.0) % Basophils % 0.3 (0.0-0.4) % Absolute Granulocytes 4.51 (1.4-6.9) Basophils # 0.03 (0-0.4) Sodium 144 (137-145) mmol/L Potassium 3.8 (3.5-5.1) mmol/L Chloride 109 H (98-107) mmol/L Carbon Dioxide 16 L* (22-30) mmol/L Anion Gap 22.9 H (5-15) MEQ/L BUN 12 (9-20) mg/dL Creatinine 0.84 (0.66-1.25) mg/dL Estimated GFR > 60.0 ML/MIN Glucose 102 (74-106) mg/dL Calcium 9.5 (8.4-10.2) mg/dL Total Bilirubin 0.50 (0.2-1.3) mg/dL AST 34 (17-59) U/L ALT 58 H (0-50) U/L Alkaline Phosphatase 55 (38-126) U/L Serum Total Protein 8.8 H (6.3-8.2) g/dL Albumin 4.9 (3.5-5.0) g/dL Urine Color (YELLOW) Urine Appearance (CLEAR) Urine pH (5-6) Ur Specific [place] (1.005-1.025) Urine Protein (Negative) Urine Ketones (NEGATIVE) Urine Blood (0-5) Damon/ul Urine Nitrite (NEGATIVE) Urine Bilirubin (NEGATIVE) Urine Urobilinogen (0-1) mg/dL Ur Leukocyte Esterase (NEGATIVE) Urine WBC (Auto) (0-5) /HPF Urine RBC (Auto) (0-2) /HPF U Hyaline Cast (Auto) (0-2) /LPF U Epithel Cells (Auto) (FEW) /HPF Urine Bacteria (Auto) (NEGATIVE) /HPF Urine Mucus (Auto) (NEGATIVE) /HPF Urine Culture Reflexed (NO) Urine Glucose (NEGATIVE) mg/dL Salicylates < 1.0 L (2-20) mg/dL Urine Opiates Level (NEGATIVE) Ur Methadone (NEGATIVE) Acetaminophen 23 (10-30) ug/ml Urine Barbiturates (NEGATIVE) Ur Phencyclidine (PCP) (NEGATIVE) Urine Amphetamine (NEGATIVE) U Benzodiazepine Level (NEGATIVE) Urine Cocaine (NEGATIVE) Urine Marijuana (THC) (NEGATIVE) Ethyl Alcohol 283 H (0-10) mg/dL 09/07/18 09/07/18 09/07/18 Range/Units 19:42 19:42 22:26 WBC (4.0-10.5) K/mm3 RBC (4.1-5.6) M/mm3 Hgb (12.5-18.0) gm/dl Hct (42-50) % MCV (78-100) fl MCH (26-32) pg MCHC (32-36) g/dl RDW (11.5-14.0) % Plt Count (150-450) K/mm3 MPV (6-9.5) fl Gran % (36.0-66.0) % Eos # (Auto) (0-0.5) Absolute Lymphs (auto) (1.0-4.6) Absolute Monos (auto) (0.0-1.3) Lymphocytes % (24.0-44.0) % Monocytes % (0.0-12.0) % Eosinophils % (0.00-5.0) % Basophils % (0.0-0.4) % Absolute Granulocytes (1.4-6.9) Basophils # (0-0.4) Sodium (137-145) mmol/L Potassium (3.5-5.1) mmol/L Chloride (98-107) mmol/L Carbon Dioxide (22-30) mmol/L Anion Gap (5-15) MEQ/L BUN (9-20) mg/dL Creatinine (0.66-1.25) mg/dL Estimated GFR ML/MIN Glucose (74-106) mg/dL Calcium (8.4-10.2) mg/dL Total Bilirubin (0.2-1.3) mg/dL AST (17-59) U/L ALT (0-50) U/L Alkaline Phosphatase (38-126) U/L Serum Total Protein (6.3-8.2) g/dL Albumin (3.5-5.0) g/dL Urine Color YELLOW (YELLOW) Urine Appearance CLEAR (CLEAR) Urine pH 6.0 (5-6) Ur Specific [place] 1.009 (1.005-1.025) Urine Protein NEGATIVE (Negative) Urine Ketones NEGATIVE (NEGATIVE) Urine Blood MODERATE (0-5) Damon/ul Urine Nitrite NEGATIVE (NEGATIVE) Urine Bilirubin NEGATIVE (NEGATIVE) Urine Urobilinogen NEGATIVE (0-1) mg/dL Ur Leukocyte Esterase NEGATIVE (NEGATIVE) Urine WBC (Auto) 0-2 (0-5) /HPF Urine RBC (Auto) 3-5 (0-2) /HPF U Hyaline Cast (Auto) 3-5 (0-2) /LPF U Epithel Cells (Auto) NONE (FEW) /HPF Urine Bacteria (Auto) NONE (NEGATIVE) /HPF Urine Mucus (Auto) SLIGHT (NEGATIVE) /HPF Urine Culture Reflexed NO (NO) Urine Glucose NEGATIVE (NEGATIVE) mg/dL Salicylates (2-20) mg/dL Urine Opiates Level NEGATIVE (NEGATIVE) Ur Methadone NEGATIVE (NEGATIVE) Acetaminophen < 10 L (10-30) ug/ml Urine Barbiturates NEGATIVE (NEGATIVE) Ur Phencyclidine (PCP) NEGATIVE (NEGATIVE) Urine Amphetamine NEGATIVE (NEGATIVE) U Benzodiazepine Level NEGATIVE (NEGATIVE) Urine Cocaine NEGATIVE (NEGATIVE) Urine Marijuana (THC) NEGATIVE (NEGATIVE) Ethyl Alcohol 222 H (0-10) mg/dL 09/08/18 09/08/18 Range/Units 05:03 05:03 WBC 8.5 (4.0-10.5) K/mm3 RBC 4.73 (4.1-5.6) M/mm3 Hgb 15.5 (12.5-18.0) gm/dl Hct 46.0 (42-50) % MCV 97.3 (78-100) fl MCH 32.8 H (26-32) pg MCHC 33.7 (32-36) g/dl RDW 12.7 (11.5-14.0) % Plt Count 203 (150-450) K/mm3 MPV 9.1 (6-9.5) fl Gran % 39.5 (36.0-66.0) % Eos # (Auto) 0.45 (0-0.5) Absolute Lymphs (auto) 4.16 (1.0-4.6) Absolute Monos (auto) 0.51 (0.0-1.3) Lymphocytes % 49.0 H (24.0-44.0) % Monocytes % 6.0 (0.0-12.0) % Eosinophils % 5.3 H (0.00-5.0) % Basophils % 0.2 (0.0-0.4) % Absolute Granulocytes 3.35 (1.4-6.9) Basophils # 0.02 (0-0.4) Sodium 145 (137-145) mmol/L Potassium 4.2 (3.5-5.1) mmol/L Chloride 113 H (98-107) mmol/L Carbon Dioxide 22 (22-30) mmol/L Anion Gap 14.2 (5-15) MEQ/L BUN 8 L (9-20) mg/dL Creatinine 0.69 (0.66-1.25) mg/dL Estimated GFR > 60.0 ML/MIN Glucose 83 (74-106) mg/dL Calcium 8.8 (8.4-10.2) mg/dL Total Bilirubin 0.40 (0.2-1.3) mg/dL AST 38 (17-59) U/L ALT 53 H (0-50) U/L Alkaline Phosphatase 41 (38-126) U/L Serum Total Protein 7.3 (6.3-8.2) g/dL Albumin 4.1 (3.5-5.0) g/dL Urine Color (YELLOW) Urine Appearance (CLEAR) Urine pH (5-6) Ur Specific [place] (1.005-1.025) Urine Protein (Negative) Urine Ketones (NEGATIVE) Urine Blood (0-5) Damon/ul Urine Nitrite (NEGATIVE) Urine Bilirubin (NEGATIVE) Urine Urobilinogen (0-1) mg/dL Ur Leukocyte Esterase (NEGATIVE) Urine WBC (Auto) (0-5) /HPF Urine RBC (Auto) (0-2) /HPF U Hyaline Cast (Auto) (0-2) /LPF U Epithel Cells (Auto) (FEW) /HPF Urine Bacteria (Auto) (NEGATIVE) /HPF Urine Mucus (Auto) (NEGATIVE) /HPF Urine Culture Reflexed (NO) Urine Glucose (NEGATIVE) mg/dL Salicylates (2-20) mg/dL Urine Opiates Level (NEGATIVE) Ur Methadone (NEGATIVE) Acetaminophen (10-30) ug/ml Urine Barbiturates (NEGATIVE) Ur Phencyclidine (PCP) (NEGATIVE) Urine Amphetamine (NEGATIVE) U Benzodiazepine Level (NEGATIVE) Urine Cocaine (NEGATIVE) Urine Marijuana (THC) (NEGATIVE) Ethyl Alcohol 102 H (0-10) mg/dL - Discharge Disposition: Home, Self-Care Condition: Stable Prescriptions: Continue Famotidine 20 mg [Pepcid 20 MG] 20 mg PO BID Diphenhydramine HCl 25 mg [Benadryl 25 mg Capsule] 50 mg PO TID Trazodone HCl 50 mg [Desyrel 50 mg] 50 mg PO HS Quetiapine Fumarate [Seroquel] 100 mg PO BID Gabapentin 400 mg [Neurontin 400 MG] 400 mg PO TID Fluoxetine HCl [Prozac] 40 mg PO DAILY
[2018-09-08] MEDS ORDERED: BENADRYL 25 MG CAPSULE PO SCH (10:00)
[2018-09-08] MEDS ORDERED: Seroquel 100 MG PO SCH (10:00)
[2018-09-08] MEDS ORDERED: Prozac 20 MG PO SCH (10:00)
[2018-09-08] MEDS ORDERED: NON-FORMULARY ITEM (Fluoxetine Hcl [Prozac] 40 MG) PO SCH (10:00)
[2018-09-08] MEDS ORDERED: Pepcid 20 MG PO SCH (10:00)
[2018-09-08] MEDS ORDERED: Neurontin 400 MG PO SCH (10:00)
[2018-09-08] MEDS ORDERED: DESYREL 50 MG PO SCH (22:00)
== END 2018-09-08 10:36 | disposition home or self-care (01) ==
LOC: ED 18:51 → ICU 21:40
PROVIDERS: ADMIT General Practice; ATTEND Family Medicine
DX: F10.929 Alcohol use, unspecified with intoxication, unspecified (principal); F31.9 Bipolar disorder, unspecified; Z79.899 Other long term (current) drug therapy
CPT/HCPCS: 36000; 36415; 80053; 80307; 81001; 85025; 93005; 93268; 96360; 96372; 96374; 99285; G0378; G0481; J1630; J2060; A9270-GY; G0480

== ENCOUNTER 2019-06-25 17:36 | Emergency (ER) | payer OTHER ==
[2019-06-25 19:46] VITALS: BP 163/116; PULSE 110; O2SAT 98
[2019-06-25] MEDS ORDERED: BABY ASPIRIN 81 MG CHEW ONE (19:55)
[2019-06-25] MEDS ORDERED: Sodium Chloride 0.9% 1000 ML 1,000 ML ONE (19:55)
[2019-06-25] MEDS ORDERED: XYLOCAINE HCl Viscous ONE (20:03)
[2019-06-25] MEDS ORDERED: MAALOX ES 30 ML UNIT DOSE ONE (20:04)
[2019-06-25 20:14] LABS: Absolute Neutrophil Ct (ANC) 5.26 (1.4-6.9); BASOPHIL % 0.2 % (0.0-0.4); Basophil (Absolute #) 0.02 (0-0.4); Eosinophil % 1.9 % (0.00-5.0); Hematocrit 50.5 % (42-50); Hemoglobin 17.5 gm/dl (12.5-18.0); Lymphocytes % 38.5 % (24.0-44.0); Mean Corpuscular Hemoglobin 33.3 pg (26-32); Mean Corpuscular Hgb Concent. 34.7 g/dl (32-36); Mean Platelet Volume 9.5 fl (7.5-11.0); Monocyte (Absolute #) 0.91 (0.0-1.3); Monocytes % 8.8 % (0.0-12.0); Neutrophil % 50.6 % (36.0-66.0); Platelet Count 214 K/mm3 (150-450); Red Blood Count 5.26 M/mm3 (4.1-5.6); Red Cell Distribution Width 12.9 % (11.5-14.0); White Blood Count 10.4 K/mm3 (4.0-10.5)
[2019-06-25 20:16] LABS: PROTIME 11.3 SECONDS (8.83-12.87)
[2019-06-25 20:31] LABS: Amphetamine,Urine NEGATIVE (NEGATIVE); Barbiturate,Urine NEGATIVE (NEGATIVE); Benzodiazepine,Urine NEGATIVE (NEGATIVE); Cocaine,Urine NEGATIVE (NEGATIVE); Methadone,Urine NEGATIVE (NEGATIVE); Opiate,Urine NEGATIVE (NEGATIVE); PCP,Urine NEGATIVE (NEGATIVE); THC,Urine NEGATIVE (NEGATIVE)
[2019-06-25 20:32] LABS: ALBUMIN 4.9 g/dL (3.5-5.0); ALKALINE PHOSPHATASE 59 U/L (38-126); ANION GAP 17.3 MEQ/L (5-15); BLOOD UREA NITROGEN 12 mg/dL (9-20); CHLORIDE 101 mmol/L (98-107); Calcium 9.5 mg/dL (8.4-10.2); Carbon Dioxide 24 mmol/L (22-30); Creatinine 1 0.66 mg/dL (0.66-1.25); ETHYL ALCOHOL 121 mg/dL (0-10); Glucose 109 mg/dL (74-106); LIPASE 157 U/L (23-300); MAGNESIUM 2.2 mg/dL (1.6-2.3); NT PRO BNP 18.2 pg/mL (0-450); SGOT/AST 111 U/L (17-59); SGPT/ALT 163 U/L (0-50); SODIUM 139 mmol/L (137-145); Total Protein 8.7 g/dL (6.3-8.2)
[2019-06-25 20:42] LABS: TROPONIN < 0.012 ng/mL (0.000-0.034)
[2019-06-25 20:59] LABS: Appearance CLEAR (CLEAR)
[2019-06-25 21:00] LABS: Leukocyte Esterase NEGATIVE (NEGATIVE); Nitrite NEGATIVE (NEGATIVE); Protein,Urine Dip NEGATIVE (Negative); Specific Gravity 1.006 (1.005-1.025)
[2019-06-25 21:01] LABS: Bilirubin NEGATIVE (NEGATIVE); Blood SMALL Ery/ul (0-5); Ketones NEGATIVE (NEGATIVE); Mucus SLIGHT /HPF (NEGATIVE); RBC NONE SEEN /HPF (0-2)
[2019-06-25 21:03] LABS: Bacteria NONE SEEN /HPF (NEGATIVE)
[2019-06-25 21:04] LABS: Hyaline Casts 0-2 /LPF (0-2)
[2019-06-25] MEDS ORDERED: Ativan 2 MG/1 ML VIAL ONE (21:10)
[2019-06-25 21:42] LABS: Glucose NEGATIVE (NEGATIVE); Urobilinogen NEGATIVE mg/dL (0-1)
--- NOTE | 2019-06-26 09:24 | XRAY ---
Indication: Chest pressure. Comparison: April 20, 2012. PA/lateral chest again demonstrates normal heart, lungs, and bony thorax.
== END 2019-06-25 22:00 | disposition home or self-care (01) ==
LOC: ED 17:36
DX: K29.20 Alcoholic gastritis without bleeding (principal); F41.9 Anxiety disorder, unspecified; F41.0 Panic disorder [episodic paroxysmal anxiety]; R07.89 Other chest pain; F31.9 Bipolar disorder, unspecified; R53.83 Other fatigue; R06.00 Dyspnea, unspecified; M54.9 Dorsalgia, unspecified; R63.0 Anorexia
CPT/HCPCS: 36000; 36415; 71046; 80053; 80307; 81001; 83690; 83735; 83880; 84484; 85025; 85379; 85610; 96360; 96374; 99283; J2060; A9270-GY; G0480

== ENCOUNTER 2020-01-01 23:30 | Emergency (ER) | payer OTHER ==
[2020-01-02] MEDS ORDERED: PERCOCET TABLET 5/325MG PO ONE
[2020-01-02] MEDS ORDERED: CLEOCIN 150 MG CAPSULE PO ONE
[2020-01-02] MEDS ORDERED: PERCOCET TABLET 5/325MG ONE (00:03)
[2020-01-02] MEDS ORDERED: CLEOCIN 150 MG CAPSULE ONE (00:03)
--- NOTE | 2020-01-02 00:06 | ERPHSYRPT ---
- History of Present Illness Time Seen by Provider: 01/01/20 23:50 Source: patient Exam Limitations: no limitations Patient Subjective Stated Complaint: pt states that he went to [facility] this morning for tooth pain to left uppper jaw, pt states that he was given a script for penicillin, pt states that he took 1.5 tabs this morning, pt states that he then went back to [facility] and received a shot of antibiotic, pt states that he took another penicillin at 6pm, pt states that the left side of his face began to swell today, pt states that he has been taking 1 tylenol and 1 ibuprofen every 4 hours without any relief Triage Nursing Assessment: pt ambulated into the er, pt is axo x3, ETOH, pt has facial swelling to the left side, c/o dental pain, multiple missing teeth, tooth decay present to upper left molar, states 10/10 pain, clear lung sounds in all lobes, pupils 2mm and PERRL, vital wnl Physician History: 39 years old male presented in the ER with chief complaint of left upper jaw and facial pain/swelling gradual onset for the last 2 days and progressively worsening. He has been seen at [facility] twice today with oral/IM antibiotics but did not see much improvement and swelling is gradually worsening associated with moderate to severe sharp stabbing pain which is aggravated with movements of jaw and palpation and partial relief with taking Tylenol/ibuprofen. Denies any fever or chills. Patient has history of multiple bad dentition's and continues to chew heavy tobacco. Timing/Duration: day(s) (2), gradual onset, worse Severity: severe Modifying Factors: Improves With: movement Associated Symptoms: headaches Allergies/Adverse Reactions: cyclobenzaprine [From Flexeril] Allergy (Mild, Verified 06/25/19 17:43) Nausea ketorolac [From Toradol] Allergy (Mild, Unverified 06/25/19 17:43) Nausea mirtazapine [From Remeron] Adverse Reaction (Mild, Verified 06/25/19 17:43) DRY HEAVE Home Medications: Famotidine 20 mg [Pepcid 20 MG] 20 mg PO BID 09/08/18 [History] Fluoxetine HCl [Prozac] 40 mg PO DAILY 09/08/18 [History] Gabapentin 400 mg [Neurontin 400 MG] 400 mg PO TID 09/08/18 [History] Quetiapine Fumarate [Seroquel] 100 mg PO BID 09/08/18 [History] Trazodone HCl 50 mg [Desyrel 50 mg] 50 mg PO HS 09/08/18 [History] Hx Tetanus, Diphtheria Vaccination/Date Given: No Hx Influenza Vaccination/Date Given: No Hx Pneumococcal Vaccination/Date Given: No Travel Risk - International Travel Have you traveled outside of the country in past 3 weeks: No - Coronavirus Screening Are you exhibiting any of the following symptoms?: No Close contact with a COVID-19 positive Pt in past 14-21 Days: No - Review of Systems Constitutional: No Symptoms Eyes: No Symptoms Ears, Nose, & Throat: Mouth Pain, Mouth Swelling, Loose Teeth, Painful Swallowing Respiratory: No Symptoms Cardiac: No Symptoms Musculoskeletal: No Symptoms Skin: No Symptoms Neurological: No Symptoms Psychological: No Symptoms Endocrine: No Symptoms Hematologic/Lymphatic: No Symptoms - Past Medical History Pertinent Past Medical History: Yes Neurological History: No Pertinent History ENT History: No Pertinent History Cardiac History: No Pertinent History Respiratory History: No Pertinent History Endocrine Medical History: No Pertinent History Musculoskeletal History: Arthritis, Degenerative Disk Disease GI Medical History: Ulcer History: No Pertinent History Psycho-Social History: Anxiety, Bipolar, Depression Male Reproductive Disorders: No Pertinent History Other Medical History: CHRONIC DRUG ABUSER. panic anxiety - Past Surgical History Past Surgical History: No Neuro Surgical History: No Pertinent History Cardiac: No Pertinent History Respiratory: No Pertinent History Gastrointestinal: No Pertinent History Genitourinary: No Pertinent History Musculoskeletal: No Pertinent History Male Surgical History: Vasectomy Other Surgical History: vasectomy - Social History Smoking Status: Current every day smoker How long have you smoked: 20 YEARS Exposure to second hand smoke: Yes Alcohol Use: Socially Drug Use: marijuana, methamphetamines, narcotics, other Patient Lives Alone: No Significant Family History: no pertinent family hx - Nursing Vital Signs Nursing Vital Signs: Initial Vital Signs Temperature 98.1 F 01/01/20 23:40 Pulse Rate 93 H 01/01/20 23:40 Blood Pressure 129/86 01/01/20 23:40 O2 Sat by Pulse Oximetry 98 01/01/20 23:40 Pain Scale Pain Intensity 10 - Physical Exam General Appearance: no apparent distress, alert Eye Exam: PERRL/EOMI, eyes nml inspection Ears, Nose, Throat Exam: TMs normal, pharyngeal erythema, other (Swollen left face with puffiness underneath left eye. Warm/tender to touch. No fluctuation. Multiple caries and periodontal disease. Swollen gingiva.) Neck Exam: normal inspection, non-tender, supple, full range of motion Respiratory Exam: normal breath sounds, lungs clear Cardiovascular Exam: regular rate/rhythm, normal heart sounds Back Exam: normal inspection Extremity Exam: normal inspection, normal range of motion Neurologic Exam: alert, oriented x 3, cooperative Skin Exam: normal color SpO2 Interpretation: normal SpO2: 98 - Course Nursing assessment & vital signs reviewed: Yes - Progress Progress: pain not gone completely Progress Note: 01/02/20 00:05 Patient has periodontal disease/caries and is developing abscess. I have offered him local/regional block but he refused. He does not want any shot and given oral Percocet and started on clindamycin. Recommended outpatient follow-up with dentist. Counseled pt/family regarding: diagnosis, need for follow-up - Departure Departure Disposition: Home Clinical Impression: Dental abscess Condition: Stable Critical Care Time: No Referrals: CHELA COX MD [Primary Care Provider] - Follow Up with PCP/3 days TRISTON DAVID DDS [NON-STAFF PHY W/O PRIVILEGES] - (Call for appointment on Saturday morning) Instructions: Tooth Abscess (DC), Dental Pain (DC) Additional Instructions: Take Tylenol/ibuprofen as needed. Continue with clindamycin and discontinue other antibiotics. Follow-up with your dentist for reevaluation. Return to ER for any worsening. Prescriptions: Ibuprofen 600 mg PO Q6HPRN PRN 10 Days #20 tablet PRN Reason: Pain Clindamycin HCl 150 mg [Cleocin 150 mg Capsule] 2 cap PO QID #56 capsule
[2020-01-02 00:26] VITALS: BP 111/84; PULSE 95; O2SAT 99
== END 2020-01-02 00:26 | disposition home or self-care (01) ==
LOC: ED 23:30
DX: K04.7 Periapical abscess without sinus (principal)
CPT/HCPCS: 99283; A9270-GY

== ENCOUNTER 2021-09-26 14:28 | Emergency (ER) | payer OTHER ==
[2021-09-26 14:39] VITALS: BP 134/89; PULSE 96; O2SAT 97
--- NOTE | 2021-09-26 14:40 | ERPHSYRPT ---
- History of Present Illness Time Seen by Provider: 09/26/21 14:40 Source: patient Exam Limitations: no limitations Patient Subjective Stated Complaint: Pt states "My mouth hurts. I have dental pain, worst pain I have ever had." Triage Nursing Assessment: PT presented alert and oriented X 3, skin wpd. Pt ambulates with an upright steady gait, able to speak in clear full sentences pt in no apaprent respiratory distress. Pt pain in left upper mouth Physician History: This is a 40-year-old white male who was brought in by his mother per his report and complains of generalized dental pain. The worst pain is in the left upper molars. He has had this worsening over the last several days. Patient cannot be seen by dentist for approximately 1 week. Timing/Duration: gradual onset Severity: moderate ENT Location: dental Prearrival Treatment: no prearrival treatment Modifying Factors: Improves With: nothing Associated Symptoms: tooth pain Allergies/Adverse Reactions: cyclobenzaprine [From Flexeril] Allergy (Mild, Verified 06/25/19 17:43) Nausea ketorolac [From Toradol] Allergy (Mild, Unverified 06/25/19 17:43) Nausea mirtazapine [From Remeron] Adverse Reaction (Mild, Verified 06/25/19 17:43) DRY HEAVE Hx Tetanus, Diphtheria Vaccination/Date Given: No Hx Influenza Vaccination/Date Given: No Hx Pneumococcal Vaccination/Date Given: No Immunizations Up to Date: Yes Travel Risk - International Travel Have you traveled outside of the country in past 3 weeks: No - Coronavirus Screening Are you exhibiting any of the following symptoms?: No Close contact with a COVID-19 positive Pt in past 14-21 Days: No - Vaccine Status Have you recieved a Covid-19 vaccination: No - Review of Systems Constitutional: No Symptoms Eyes: No Symptoms Ears, Nose, & Throat: Other Respiratory: No Symptoms (For pain) Cardiac: No Symptoms Abdominal/Gastrointestinal: No Symptoms Genitourinary Symptoms: No Symptoms Musculoskeletal: No Symptoms Skin: No Symptoms Neurological: No Symptoms Psychological: No Symptoms Endocrine: No Symptoms Hematologic/Lymphatic: No Symptoms Immunological/Allergic: No Symptoms All Other Systems: Reviewed and Negative - Past Medical History Pertinent Past Medical History: Yes Neurological History: No Pertinent History ENT History: No Pertinent History Cardiac History: No Pertinent History Respiratory History: No Pertinent History Endocrine Medical History: No Pertinent History Musculoskeletal History: Arthritis, Degenerative Disk Disease GI Medical History: Ulcer History: No Pertinent History Psycho-Social History: Anxiety, Bipolar, Depression Male Reproductive Disorders: No Pertinent History Other Medical History: CHRONIC DRUG ABUSER. panic anxiety - Past Surgical History Past Surgical History: Yes Neuro Surgical History: No Pertinent History Cardiac: No Pertinent History Respiratory: No Pertinent History Gastrointestinal: No Pertinent History Genitourinary: No Pertinent History Musculoskeletal: No Pertinent History Male Surgical History: Vasectomy Other Surgical History: vasectomy - Social History Smoking Status: Current every day smoker How long have you smoked: 20 YEARS Exposure to second hand smoke: Yes Alcohol Use: Socially Drug Use: marijuana, methamphetamines, narcotics, other Patient Lives Alone: No Significant Family History: no pertinent family hx - Nursing Vital Signs Nursing Vital Signs: Initial Vital Signs Temperature 98.5 F 09/26/21 14:35 Pulse Rate 96 H 09/26/21 14:35 Respiratory Rate 20 09/26/21 14:35 Blood Pressure 134/89 09/26/21 14:35 O2 Sat by Pulse Oximetry 97 09/26/21 14:35 Pain Scale Pain Intensity 10 - Physical Exam General Appearance: no apparent distress, alert, anxiety Eye Exam: bilateral eye: normal inspection, PERRL, EOMI Ear Exam: bilateral ear: auricle normal Nasal Exam: normal inspection Throat Exam: pharynx normal, dental tenderness (Generalized poor dentition with left upper posterior molar fractures), moist mucus membranes Neck Exam: normal inspection, non-tender, supple, full range of motion, trachea midline Cardiovascular/Respiratory Exam: chest non-tender, no respiratory distress Abdominal Exam: non-tender Neurologic Exam: alert, oriented x 3, cooperative, 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, normal mood/affect, nml cerebellar function, nml station & gait, sensation nml Skin Exam: normal color, warm, dry SpO2 Interpretation: normal SpO2: 97 O2 Delivery: Room Air - Course Nursing assessment & vital signs reviewed: Yes Ordered Tests: Medication Summary Discontinued Medications Generic Name Dose Route Start Last Admin Trade Name Freq PRN Reason Stop Dose Admin Hydrocodone Bitart/Acetaminophen 1 tab 09/26/21 15:09 Hydrocodone/Apap 5/325 Mg Tablet PO 09/26/21 15:10 STAT ONE Amoxicillin 500 mg 09/26/21 15:09 Amoxicillin Trihydrate 500 Mg Capsule PO 09/26/21 15:10 STAT ONE - Progress Progress: pain not gone completely Counseled pt/family regarding: diagnosis, need for follow-up - Departure Departure Disposition: Home Clinical Impression: Pain, dental, Dental caries Condition: Stable Critical Care Time: No Referrals: CHELA COX MD [Primary Care Provider] - Follow up/PCP as directed Additional Instructions: Follow-up with a dentist for definitive care. Take your medications as prescribed. Prescriptions: Hydrocodone/APAP 5/325 [Virden 5/325 mg] 1 each PO Q12H PRN PRN #4 tablet MDD 2 PRN Reason: Pain Amoxicillin 500 mg Cap [Amoxil 500 mg] 500 mg PO TID #30 cap
[2021-09-26] MEDS ORDERED: AMOXIL 500 MG PO ONE (15:09)
[2021-09-26] MEDS ORDERED: NORCO 5/325 MG PO ONE (15:09)
[2021-09-26] MEDS ORDERED: AMOXIL 500 MG ONE (15:22)
[2021-09-26] MEDS ORDERED: NORCO 5/325 MG ONE (15:22)
== END 2021-09-26 15:40 | disposition home or self-care (01) ==
LOC: ED 14:28
DX: K02.9 Dental caries, unspecified (principal); Z72.0 Tobacco use; Z79.891 Long term (current) use of opiate analgesic
CPT/HCPCS: 99283; A9270-GY

== ENCOUNTER 2021-10-08 20:27 | Emergency (ER) | payer OTHER ==
[2021-10-08 20:50] VITALS: BP 144/77; PULSE 87; O2SAT 100
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
== END 2021-10-08 20:45 | disposition left against medical advice (07) ==
LOC: ED 20:27
DX: T54.2X1A Toxic effect of corrosive acids and acid-like substances, accidental (unintentional), initial encounter (principal); T20.40XA Corrosion of unspecified degree of head, face, and neck, unspecified site, initial encounter; H57.11 Ocular pain, right eye; Z72.0 Tobacco use
CPT/HCPCS: 99283

== ENCOUNTER 2022-08-11 11:15 | Emergency (ER) | payer MEDICAID, OTHER ==
--- NOTE | 2022-08-11 11:17 | ERPHSYRPT ---
- History of Present Illness Time Seen by Provider: 08/11/22 11:17 Historian: patient Exam Limitations: no limitations Physician History: This is a 41-year-old white male patient of Dr. Cox who has a history of anxiety, panic disorder, arthritis, degenerative joint disease, chronic drug abuse history and presents with relatively sudden onset of substernal, central chest pain without radiation. As he is in the emergency department, he also states he is having some upper abdominal pain as well which is separate from his chest pain. This is more of an ache. It also is in the epigastric area without radiation. He has nausea symptoms as well. Patient denies any diagnosed coronary artery disease. Timing/Duration: today Activities at Onset: none Quality: aching Location: substernal, central, epigastric Chest Pain Radiation: no radiation Severity of Pain-Max: moderate Severity of Pain-Current: moderate Modifying Factors: Improves With: nothing Associated Symptoms: denies symptoms Prior Chest Pain/Cardiac Workup: no prior chest pain, no prior cardiac workup Nitro Today/Relief: no nitro taken today Aspirin Treatment Today: 81 mg x 4, provided by ED Allergies/Adverse Reactions: cyclobenzaprine [From Flexeril] Allergy (Mild, Verified 08/11/22 11:43) Nausea ketorolac [From Toradol] Allergy (Mild, Verified 08/11/22 11:43) Nausea mirtazapine [From Remeron] Adverse Reaction (Mild, Verified 08/11/22 11:43) DRY HEAVE Hx Tetanus, Diphtheria Vaccination/Date Given: Yes Hx Influenza Vaccination/Date Given: No Hx Pneumococcal Vaccination/Date Given: No Travel Risk - International Travel Have you traveled outside of the country in past 3 weeks: No - Coronavirus Screening Are you exhibiting any of the following symptoms?: No Close contact with a COVID-19 positive Pt in past 14-21 Days: No - Vaccine Status Have you recieved a Covid-19 vaccination: Yes 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 - Vaccination Dates Date of 2cond Vaccination (if applicable): unknown - Review of Systems Constitutional: No Symptoms Eyes: No Symptoms Ears, Nose, & Throat: No Symptoms Respiratory: No Symptoms Cardiac: Chest Pain Abdominal/Gastrointestinal: Abdominal Pain (Epigastric), Nausea, No Vomiting, No Diarrhea, No Constipation Genitourinary Symptoms: No Symptoms Musculoskeletal: No Symptoms Skin: No Symptoms Neurological: No Symptoms Psychological: Drug Abuse (History of chronic drug abuse), Anxiety Endocrine: No No Symptoms Hematologic/Lymphatic: No Symptoms Immunological/Allergic: No Symptoms All Other Systems: Reviewed and Negative - Past Medical History Pertinent Past Medical History: Yes Neurological History: No Pertinent History ENT History: No Pertinent History Cardiac History: No Pertinent History Respiratory History: No Pertinent History Endocrine Medical History: No Pertinent History Musculoskeletal History: Arthritis, Degenerative Disk Disease GI Medical History: Ulcer History: No Pertinent History Psycho-Social History: Anxiety, Bipolar, Depression Male Reproductive Disorders: No Pertinent History Other Medical History: CHRONIC DRUG ABUSER. panic anxiety - Past Surgical History Past Surgical History: Yes Neuro Surgical History: No Pertinent History Cardiac: No Pertinent History Respiratory: No Pertinent History Gastrointestinal: No Pertinent History Genitourinary: No Pertinent History Musculoskeletal: No Pertinent History Male Surgical History: Vasectomy Other Surgical History: vasectomy - Social History Smoking Status: Current every day smoker How long have you smoked: 20 YEARS Exposure to second hand smoke: Yes Alcohol Use: Socially Drug Use: marijuana, methamphetamines, narcotics, heroin, other Patient Lives Alone: No Significant Family History: no pertinent family hx - Nursing Vital Signs Nursing Vital Signs: Initial Vital Signs Temperature 98.3 F 08/11/22 11:20 Pulse Rate 100 H 08/11/22 11:20 Respiratory Rate 26 H 08/11/22 11:20 Blood Pressure 143/94 08/11/22 11:20 O2 Sat by Pulse Oximetry 100 08/11/22 11:20 Pain Scale Pain Intensity 8 - Physical Exam General Appearance: mild distress, alert, anxiety Eye Exam: PERRL/EOMI, eyes nml inspection Ears, Nose, Throat Exam: normal ENT inspection, moist mucous membranes Neck Exam: normal inspection, non-tender, supple, full range of motion Respiratory Exam: normal breath sounds, chest tenderness, lungs clear, airway intact, No respiratory distress Cardiovascular Exam: regular rate/rhythm, normal heart sounds, normal peripheral pulses Gastrointestinal/Abdomen Exam: soft, normal bowel sounds, tenderness (Mild epigastric), guarding (Mild epigastric to palpation), No rebound Rectal Exam: not done Back Exam: normal inspection, normal range of motion, No CVA tenderness, No vertebral tenderness Extremity Exam: normal inspection, normal range of motion, pelvis stable Neurologic Exam: alert, oriented x 3, cooperative, 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 It was interpreted by me. There are no changes present when compared to twelve-lead EKG dated 06/25/2019.) Ordered Tests: Active Orders 24 hr Category Date Time Status Supervisor Dehydrogenation STAT Care 08/11/22 11:48 Active EKG-ER Only STAT Care 08/11/22 11:20 Active IV Insertion STAT Care 08/11/22 11:20 Active Pulse Oximetry (ED) STAT Care 08/11/22 11:20 Active ABDOMEN AND PELVIS W/0 CONTRAS [CT] Stat Exams 08/11/22 11:54 Taken CHEST 1 VIEW (PORTABLE) Stat Exams 08/11/22 11:21 Taken AMYLASE Stat Lab 08/11/22 11:54 Completed CBC W DIFF Stat Lab 08/11/22 11:20 Completed CMP Stat Lab 08/11/22 11:45 Completed CULTURE,URINE Stat Lab 08/11/22 12:20 Received D-DIMER QUANTITATIVE Stat Lab 08/11/22 11:45 Completed LIPASE Stat Lab 08/11/22 11:54 Completed PROTIME WITH INR Stat Lab 08/11/22 11:45 Completed TROPONIN Q4H Lab 08/11/22 11:45 Completed TROPONIN Q4H Lab 08/11/22 15:30 Ordered TROPONIN Q4H Lab 08/11/22 19:30 Ordered UA W/RFX UR CULTURE Stat Lab 08/11/22 12:20 Completed Urine Triage Profile Stat Lab 08/11/22 12:20 Completed Medication Summary Discontinued Medications Generic Name Dose Route Start Last Admin Trade Name Freq PRN Reason Stop Dose Admin Aspirin 324 mg 08/11/22 11:20 08/11/22 11:42 Aspirin 81 Mg Tab.Chew PO 08/11/22 11:21 324 mg STAT ONE Administration Hydromorphone HCl 1 mg 08/11/22 13:24 08/11/22 13:29 Hydromorphone 1 Mg/1ml Inj 1 Mg/Ml Syringe IV 08/11/22 13:25 1 mg STAT ONE Administration Hydromorphone HCl Confirm 08/11/22 13:28 Hydromorphone 1 Mg/1ml Inj 1 Mg/Ml Syringe Administered 08/11/22 13:29 Dose 1 mg .ROUTE .STK-MED ONE Sodium Chloride 1,000 mls @ 999 mls/hr 08/11/22 11:54 08/11/22 13:01 Sodium Chloride 0.9% 1000 Ml IV 08/11/22 12:54 Infused .Q1H1M STA Infusion Sodium Chloride Confirm 08/11/22 11:59 Sodium Chloride 0.9% 1000 Ml Administered 08/11/22 12:00 Dose 1,000 mls @ ud .ROUTE .STK-MED ONE Levofloxacin 500 mg 08/11/22 13:37 Levofloxacin 500 Mg Tablet PO 08/11/22 13:38 STAT ONE Metronidazole 500 mg 08/11/22 13:37 Metronidazole 500 Mg Tablet PO 08/11/22 13:38 STAT ONE Morphine Sulfate 4 mg 08/11/22 11:47 08/11/22 11:51 Morphine Sulfate 4 Mg/Ml Injection IV 08/11/22 11:48 4 mg STAT ONE Administration Morphine Sulfate Confirm 08/11/22 11:49 Morphine Sulfate 4 Mg/Ml Injection Administered 08/11/22 11:50 Dose 4 mg .ROUTE .STK-MED ONE Ondansetron HCl 4 mg 08/11/22 11:20 08/11/22 11:51 Ondansetron Hcl 4 Mg/2 Ml Vial IV 08/11/22 11:21 4 mg STAT ONE Administration Ondansetron HCl Confirm 08/11/22 11:49 Ondansetron Hcl 4 Mg/2 Ml Vial Administered 08/11/22 11:50 Dose 4 mg .ROUTE .STK-MED ONE Pantoprazole Sodium 40 mg 08/11/22 11:47 08/11/22 11:51 Pantoprazole 40 Mg Vial IV 08/11/22 11:48 40 mg STAT ONE Administration Pantoprazole Sodium Confirm 08/11/22 11:49 Pantoprazole 40 Mg Vial Administered 08/11/22 11:50 Dose 40 mg IV .STK-MED ONE Lab/Rad Data: Laboratory Result Diagrams 08/11/22 11:20 08/11/22 11:45 Laboratory Results 08/11/22 08/11/22 08/11/22 Range/Units 12:20 12:20 11:54 WBC (4.0-10.5) x10^3/uL RBC (4.1-5.6) x10^6/uL Hgb (12.5-18.0) g/dL Hct (42-50) % MCV (78-100) fL MCH (26-32) pg MCHC (32-36) g/dL RDW (11.5-14.0) % Plt Count (150-450) x10^3/uL MPV (7.5-11.0) fL Gran % (36.0-66.0) % Immature Gran % (Auto) (0.00-0.4) % Nucleat RBC Rel Count (0.00-0.1) % Eos # (Auto) (0-0.5) x10^3/uL Immature Gran # (Auto) (0.00-0.03) x10^3u/L Absolute Lymphs (auto) (1.0-4.6) x10^3/uL Absolute Monos (auto) (0.0-1.3) x10^3/uL Absolute Nucleated RBC (0.00-0.01) x10^3u/L Lymphocytes % (24.0-44.0) % Monocytes % (0.0-12.0) % Eosinophils % (0.00-5.0) % Basophils % (0.0-0.4) % Absolute Granulocytes (1.4-6.9) x10^3/uL Basophils # (0-0.4) x10^3/uL PT (9.4-12.5) SECONDS INR (0.8-3.0) D-Dimer (0.0-0.50) mg/L Sodium (137-145) mmol/L Potassium (3.5-5.1) mmol/L Chloride (98-107) mmol/L Carbon Dioxide (22-30) mmol/L Anion Gap (5-15) MEQ/L BUN (9-20) mg/dL Creatinine (0.66-1.25) mg/dL Estimated GFR ML/MIN Glucose (74-106) mg/dL Calcium (8.4-10.2) mg/dL Total Bilirubin (0.2-1.3) mg/dL AST (17-59) U/L ALT (0-50) U/L Alkaline Phosphatase (38-126) U/L Troponin I (0.000-0.034) ng/mL Serum Total Protein (6.3-8.2) g/dL Albumin (3.5-5.0) g/dL Amylase 87 (30-110) U/L Lipase 178 (23-300) U/L Urine Color Yellow (Yellow) Urine Appearance Clear (Clear) Urine pH 6.5 (4.6-8.0) Ur Specific [place] 1.015 (1.005-1.030) Urine Protein Trace A (Negative) Urine Glucose (UA) Negative (Negative) mg/dL Urine Ketones Trace A (Negative) Urine Blood Negative (Negative) Urine Nitrite Negative (Negative) Urine Bilirubin Negative (Negative) Urine Urobilinogen 1.0 A (0.2) mg/dL Ur Leukocyte Esterase Trace A (Negative) U Hyaline Cast (Auto) NONE SEEN (0-2) /LPF Urine Microscopic RBC 0-2 (0-5) /HPF Urine Microscopic WBC 0-2 (0-5) /HPF Ur Epithelial Cells None Seen (None Seen) /HPF Urine Bacteria None Seen (None Seen) /HPF Urine Culture Reflexed YES (NO) Urine Opiates Level POSITIVE (NEGATIVE) Ur Methadone NEGATIVE (NEGATIVE) Urine Barbiturates NEGATIVE (NEGATIVE) Ur Phencyclidine (PCP) NEGATIVE (NEGATIVE) Urine Amphetamine NEGATIVE (NEGATIVE) U Benzodiazepine Level NEGATIVE (NEGATIVE) Urine Cocaine NEGATIVE (NEGATIVE) Urine Marijuana (THC) NEGATIVE (NEGATIVE) 08/11/22 08/11/22 08/11/22 Range/Units 11:45 11:45 11:45 WBC (4.0-10.5) x10^3/uL RBC (4.1-5.6) x10^6/uL Hgb (12.5-18.0) g/dL Hct (42-50) % MCV (78-100) fL MCH (26-32) pg MCHC (32-36) g/dL RDW (11.5-14.0) % Plt Count (150-450) x10^3/uL MPV (7.5-11.0) fL Gran % (36.0-66.0) % Immature Gran % (Auto) (0.00-0.4) % Nucleat RBC Rel Count (0.00-0.1) % Eos # (Auto) (0-0.5) x10^3/uL Immature Gran # (Auto) (0.00-0.03) x10^3u/L Absolute Lymphs (auto) (1.0-4.6) x10^3/uL Absolute Monos (auto) (0.0-1.3) x10^3/uL Absolute Nucleated RBC (0.00-0.01) x10^3u/L Lymphocytes % (24.0-44.0) % Monocytes % (0.0-12.0) % Eosinophils % (0.00-5.0) % Basophils % (0.0-0.4) % Absolute Granulocytes (1.4-6.9) x10^3/uL Basophils # (0-0.4) x10^3/uL PT 10.3 (9.4-12.5) SECONDS INR 0.94 (0.8-3.0) D-Dimer 0.48 (0.0-0.50) mg/L Sodium 143 (137-145) mmol/L Potassium 4.2 (3.5-5.1) mmol/L Chloride 104 (98-107) mmol/L Carbon Dioxide 25 (22-30) mmol/L Anion Gap 17.5 H (5-15) MEQ/L BUN 10 (9-20) mg/dL Creatinine 0.62 L (0.66-1.25) mg/dL Estimated GFR > 60.0 ML/MIN Glucose 124 H (74-106) mg/dL Calcium 9.1 (8.4-10.2) mg/dL Total Bilirubin 0.70 (0.2-1.3) mg/dL AST 79 H (17-59) U/L ALT 82 H (0-50) U/L Alkaline Phosphatase 64 (38-126) U/L Troponin I < 0.012 (0.000-0.034) ng/mL Serum Total Protein 8.5 H (6.3-8.2) g/dL Albumin 4.8 (3.5-5.0) g/dL Amylase (30-110) U/L Lipase (23-300) U/L Urine Color (Yellow) Urine Appearance (Clear) Urine pH (4.6-8.0) Ur Specific [place] (1.005-1.030) Urine Protein (Negative) Urine Glucose (UA) (Negative) mg/dL Urine Ketones (Negative) Urine Blood (Negative) Urine Nitrite (Negative) Urine Bilirubin (Negative) Urine Urobilinogen (0.2) mg/dL Ur Leukocyte Esterase (Negative) U Hyaline Cast (Auto) (0-2) /LPF Urine Microscopic RBC (0-5) /HPF Urine Microscopic WBC (0-5) /HPF Ur Epithelial Cells (None Seen) /HPF Urine Bacteria (None Seen) /HPF Urine Culture Reflexed (NO) Urine Opiates Level (NEGATIVE) Ur Methadone (NEGATIVE) Urine Barbiturates (NEGATIVE) Ur Phencyclidine (PCP) (NEGATIVE) Urine Amphetamine (NEGATIVE) U Benzodiazepine Level (NEGATIVE) Urine Cocaine (NEGATIVE) Urine Marijuana (THC) (NEGATIVE) 08/11/22 Range/Units 11:20 WBC 13.9 H (4.0-10.5) x10^3/uL RBC 5.27 (4.1-5.6) x10^6/uL Hgb 17.7 (12.5-18.0) g/dL Hct 51.2 H (42-50) % MCV 97.2 (78-100) fL MCH 33.6 H (26-32) pg MCHC 34.6 (32-36) g/dL RDW 12.5 (11.5-14.0) % Plt Count 243 (150-450) x10^3/uL MPV 8.9 (7.5-11.0) fL Gran % 64.3 (36.0-66.0) % Immature Gran % (Auto) 0.4 (0.00-0.4) % Nucleat RBC Rel Count 0.0 (0.00-0.1) % Eos # (Auto) 0.22 (0-0.5) x10^3/uL Immature Gran # (Auto) 0.06 H (0.00-0.03) x10^3u/L Absolute Lymphs (auto) 3.73 (1.0-4.6) x10^3/uL Absolute Monos (auto) 0.90 (0.0-1.3) x10^3/uL Absolute Nucleated RBC 0.00 (0.00-0.01) x10^3u/L Lymphocytes % 26.8 (24.0-44.0) % Monocytes % 6.5 (0.0-12.0) % Eosinophils % 1.6 (0.00-5.0) % Basophils % 0.4 (0.0-0.4) % Absolute Granulocytes 8.94 H (1.4-6.9) x10^3/uL Basophils # 0.06 (0-0.4) x10^3/uL PT (9.4-12.5) SECONDS INR (0.8-3.0) D-Dimer (0.0-0.50) mg/L Sodium (137-145) mmol/L Potassium (3.5-5.1) mmol/L Chloride (98-107) mmol/L Carbon Dioxide (22-30) mmol/L Anion Gap (5-15) MEQ/L BUN (9-20) mg/dL Creatinine (0.66-1.25) mg/dL Estimated GFR ML/MIN Glucose (74-106) mg/dL Calcium (8.4-10.2) mg/dL Total Bilirubin (0.2-1.3) mg/dL AST (17-59) U/L ALT (0-50) U/L Alkaline Phosphatase (38-126) U/L Troponin I (0.000-0.034) ng/mL Serum Total Protein (6.3-8.2) g/dL Albumin (3.5-5.0) g/dL Amylase (30-110) U/L Lipase (23-300) U/L Urine Color (Yellow) Urine Appearance (Clear) Urine pH (4.6-8.0) Ur Specific [place] (1.005-1.030) Urine Protein (Negative) Urine Glucose (UA) (Negative) mg/dL Urine Ketones (Negative) Urine Blood (Negative) Urine Nitrite (Negative) Urine Bilirubin (Negative) Urine Urobilinogen (0.2) mg/dL Ur Leukocyte Esterase (Negative) U Hyaline Cast (Auto) (0-2) /LPF Urine Microscopic RBC (0-5) /HPF Urine Microscopic WBC (0-5) /HPF Ur Epithelial Cells (None Seen) /HPF Urine Bacteria (None Seen) /HPF Urine Culture Reflexed (NO) Urine Opiates Level (NEGATIVE) Ur Methadone (NEGATIVE) Urine Barbiturates (NEGATIVE) Ur Phencyclidine (PCP) (NEGATIVE) Urine Amphetamine (NEGATIVE) U Benzodiazepine Level (NEGATIVE) Urine Cocaine (NEGATIVE) Urine Marijuana (THC) (NEGATIVE) - Progress Progress: improved, re-examined Air Movement: good Progress Note: 08/11/22 12:34 Chest x-ray was interpreted by me. There is no acute cardiopulmonary process. 08/11/22 13:39 This patient's medical issue is of moderate complexity. The level of complexity in the work-up performed is based on review of the patient's past medical history, obtaining additional information from the patient's significant other, history of present illness and findings on physical examination. The work-up included patient of intravenous line, infusion of a liter of normal saline solution, providing patient with 4 mg of intravenous Zofran, 4 mg of intravenous morphine, 1 mg of intravenous Dilaudid and 40 mg of intravenous Protonix. We also obtained a CBC, CMP, urinalysis, urine triage, amylase and lipase as well as obtaining a chest x-ray and CT scan of the abdomen pelvis. I reviewed the radiologist report from the CAT scan of the abdomen pelvis. I interpreted the chest x-ray. The patient has mild colitis. The patient is an alcoholic and alcohol may interact with the Flagyl that would ordinarily help with this colitis condition. 08/11/22 13:48 This patient consumes significant amount of alcohol, he has a history of drug abuse and smokes cigarettes. This may be the underlying cause of this patient's mild colitis. He has mildly elevated liver function tests. We will provide him with a list of a low fiber diet place him on a short burst of prednisone and have him stop consuming alcohol, drug abuse and cigarette smoking. Blood Culture(s) Obtained: Yes Antibiotics given: Yes Counseled pt/family regarding: lab results, diagnosis, need for follow-up, rad results Medical Desision Making - Discussion of managment Reviewed:: Test results Agreed on:: Treatment plan - Social Determinants of Health Pt's dx & treatment plan are significantly limited by SDOH: Unemployed Limited access to: medical care - Diagnostic Testing Diagnostic test were ordered, analyzed, and reviewed by me: Yes Radiological Interpretation: Reviewed by me, Teleradiologist Report - Risk of complications The pt has a mod risk of morbidity or mortality based on: Need for prescription drug management - Departure Departure Disposition: Home Clinical Impression: Non-cardiac chest pain, Colitis, Gastritis Condition: Stable Critical Care Time: No Referrals: CHELA COX MD [Primary Care Provider] - Follow up/PCP as directed Additional Instructions: Drink plenty of clear liquids. Do not drink alcoholic beverages. Stop using illicit drugs. Stop your consumption of nicotine by stopping your smoking. Take your medication as prescribed. Use Tylenol for pain control. Follow-up with your primary care provider for further evaluation and management Prescriptions: Prednisone 10 mg [Deltasone 10 mg] 10 mg PO TID #12 tablet PANTOPRAZOLE 40 mg Tablet [Protonix 40MG Tablet] 40 mg PO DAILY #10 tab
[2022-08-11] MEDS ORDERED: Zofran 4 MG/2 ML VIAL IV ONE (11:20)
[2022-08-11] MEDS ORDERED: BABY ASPIRIN 81 MG CHEW PO ONE (11:20)
[2022-08-11] MEDS ORDERED: PROTONIX 40 MG IV IV ONE ×2 (11:47→11:49)
[2022-08-11] MEDS ORDERED: MORPHINE SULFATE 4 MG INJ IV ONE (11:47)
[2022-08-11] MEDS ORDERED: Zofran 4 MG/2 ML VIAL ONE (11:49)
[2022-08-11] MEDS ORDERED: MORPHINE SULFATE 4 MG INJ ONE (11:49)
[2022-08-11] MEDS ORDERED: Sodium Chloride 0.9% 1000 ML 1,000 ML IV STA (11:54)
[2022-08-11] MEDS ORDERED: Sodium Chloride 0.9% 1000 ML 1,000 ML ONE (11:59)
[2022-08-11 12:01] LABS: Absolute Neutrophil Ct (ANC) 8.94 x10^3/uL (1.4-6.9); BASOPHIL % 0.4 % (0.0-0.4); Basophil (Absolute #) 0.06 x10^3/uL (0-0.4); Eosinophil % 1.6 % (0.00-5.0); Eosinophil (Absolute #) 0.22 x10^3/uL (0-0.5); Hematocrit 51.2 % (42-50); Hemoglobin 17.7 g/dL (12.5-18.0); IMMATURE GRAN # 0.06 x10^3u/L (0.00-0.03); IMMATURE GRAN % 0.4 % (0.00-0.4); Lymphocyte (Absolute #) 3.73 x10^3/uL (1.0-4.6); Lymphocytes % 26.8 % (24.0-44.0); Mean Cell Volume 97.2 fL (78-100); Mean Corpuscular Hemoglobin 33.6 pg (26-32); Mean Corpuscular Hgb Concent. 34.6 g/dL (32-36); Mean Platelet Volume 8.9 fL (7.5-11.0); Monocytes % 6.5 % (0.0-12.0); Neutrophil % 64.3 % (36.0-66.0); Platelet Count 243 x10^3/uL (150-450); Red Blood Count 5.27 x10^6/uL (4.1-5.6); Red Cell Distribution Width 12.5 % (11.5-14.0); White Blood Count 13.9 x10^3/uL (4.0-10.5)
[2022-08-11 12:09] LABS: AMYLASE 87 U/L (30-110); LIPASE 178 U/L (23-300)
[2022-08-11 12:09] LABS: ALBUMIN 4.8 g/dL (3.5-5.0); ALKALINE PHOSPHATASE 64 U/L (38-126); ANION GAP 17.5 MEQ/L (5-15); BLOOD UREA NITROGEN 10 mg/dL (9-20); CHLORIDE 104 mmol/L (98-107); Calcium 9.1 mg/dL (8.4-10.2); Carbon Dioxide 25 mmol/L (22-30); Creatinine 1 0.62 mg/dL (0.66-1.25); EST GLOMERULAR FILTRATION RATE > 60.0 ML/MIN; Glucose 124 mg/dL (74-106); Potassium 4.2 mmol/L (3.5-5.1); SGOT/AST 79 U/L (17-59); SGPT/ALT 82 U/L (0-50); SODIUM 143 mmol/L (137-145); Total Protein 8.5 g/dL (6.3-8.2)
[2022-08-11 12:10] LABS: D-DIMER QUANTITATIVE 0.48 mg/L (0.0-0.50); INR 0.94 (0.8-3.0); PROTIME 10.3 SECONDS (9.4-12.5)
[2022-08-11 12:29] LABS: Appearance Clear (Clear); Bacteria None Seen /HPF (None Seen); Bilirubin Negative (Negative); Blood Negative (Negative); Epithelial Cells None Seen /HPF (None Seen); Glucose, Urine Negative (Negative); Hyaline Casts NONE SEEN /LPF (0-2); Ketones Trace (Negative); Leukocyte Esterase Trace (Negative); Nitrite Negative (Negative); Ph 6.5 (4.6-8.0); Protein,Urine Dip Trace (Negative); RBC 0-2 /HPF (0-5); Specific Gravity 1.015 (1.005-1.030); WBC 0-2 /HPF (0-5)
[2022-08-11 12:40] LABS: Amphetamine,Urine NEGATIVE (NEGATIVE); Barbiturate,Urine NEGATIVE (NEGATIVE); Benzodiazepine,Urine NEGATIVE (NEGATIVE); Cocaine,Urine NEGATIVE (NEGATIVE); Methadone,Urine NEGATIVE (NEGATIVE); Opiate,Urine POSITIVE (NEGATIVE); PCP,Urine NEGATIVE (NEGATIVE); THC,Urine NEGATIVE (NEGATIVE)
[2022-08-11 12:58] LABS: ADD URINE CULTURE? YES (NO)
[2022-08-11] MEDS ORDERED: Hydromorphone 1 mg/ml Injection IV ONE (13:24)
[2022-08-11] MEDS ORDERED: Hydromorphone 1 mg/ml Injection ONE (13:28)
[2022-08-11] MEDS ORDERED: Levofloxacin 500 MG Tablet PO ONE (13:37)
[2022-08-11] MEDS ORDERED: Flagyl 500 MG PO ONE (13:37)
[2022-08-11 14:03] VITALS: BP 125/82; PULSE 100; O2SAT 97
--- NOTE | 2022-08-11 20:16 | XRAY ---
Indication: Chest pain. Comparison: June 25, 2019 Portable chest again demonstrates normal heart, lungs, and bony thorax.
--- NOTE | 2022-08-11 20:16 | XRAY ---
Indication: Epigastric pain and nausea. Multiple contiguous axial images obtained through the abdomen and pelvis without contrast. Comparison: None Lung bases clear. Heart not enlarged. Small hiatal hernia. Noncontrasted stomach and bowel loops appear nonobstructed. Appendix emanates medially from cecum and borderline prominence up to 8mm diameter without ree appendicitis. Lack of IV contrast precludes further characterization. Minimal sigmoid diverticulosis without diverticulitis. Diffuse fatty liver, 1.4 cm left adrenal adenoma, and nonobstructing punctate calculus in each kidney. Remaining liver, gallbladder, pancreas, spleen, adrenal glands, kidneys, ureters, bladder, uterus, and aorta are unremarkable for noncontrast exam. Osseous structures intact with L5 limbus vertebrae. No ventral or inguinal hernias. Impression: 1. Borderline prominent appendix without ree acute appendicitis. Cannot completely exclude mild/early appendicitis in the right clinical setting. 2. Chronic findings including small hiatal hernia, sigmoid diverticulosis, fatty liver, left adrenal adenoma, and nonobstructing punctate calculi. Comment: Preliminary interpretation made by [facility]. No critical discrepancy.
== END 2022-08-11 14:07 | disposition home or self-care (01) ==
LOC: ED 11:15
DX: R07.89 Other chest pain (principal); K52.9 Noninfective gastroenteritis and colitis, unspecified; K29.70 Gastritis, unspecified, without bleeding; R10.13 Epigastric pain; R11.0 Nausea; Z79.52 Long term (current) use of systemic steroids; Z72.0 Tobacco use
CPT/HCPCS: 36000; 36415; 71045; 74176; 80053; 80307; 81001; 82150; 83690; 84484; 85025; 85379; 85610; 87086; 93005; 93041; 94760; 96360; 96374; 96375; 99285; J1170; J2270; J2405; A9270-GY

== ENCOUNTER 2023-03-22 01:44 | Emergency (ER) | payer MEDICAID, OTHER ==
[2023-03-22 01:58] VITALS: RESP 16; TEMP 98
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
[2023-03-22] MEDS ORDERED: TYLENOL 325 MG PO ONE (02:46)
[2023-03-22] MEDS ORDERED: TYLENOL 325 MG ONE (02:47)
--- NOTE | 2023-03-22 03:06 | XRAY ---
CLINICAL HISTORY:head trauma COMPARISON:none TECHNIQUE:Thin axial CT of the cervical spine was performed with sagittal and coronal reconstructions without contrast. FINDINGS: Rather preserved physiological cervical lordosis. No vertebral bodies structural collapse or posterior neural elements fractures. The examined vertebral bodies are normal in height. Intact atlanto-odontoid articulation. The craniovertebral measures are unremarkable. Multilevel small marginal osteophytic lipping of the examined vertebral end plates mounting to bridging syndesmophytes opposite C5-C6 level with narrowed disc space. Multilevel posterior longitudinal ligament calcifications seen opposite C4, C5 and C6 levels. Intact examined apophyseal joints. Level by Level analysis: C2-C3: No central canal or neuroforaminal stenosis. C3-C4: central posterior disc protrusion is seen indenting the cord with no significant neural exit foramina compromise. C4-C5: central posterior disc protrusion is seen indenting the cord with no significant neural exit foramina compromise. C5-C6: posterior disc bulge inclined to the left side is seen indenting the cord and encroaching upon the corresponding neural exit foramina, more evident on the left side. C6-C7: No central canal or neuroforaminal stenosis IMPRESSION: 1. No vertebral bodies structural collapse or posterior neural elements fractures. 2. C3-C4: central posterior disc protrusion is seen indenting the cord with no significant neural exit foramina compromise. 3. C4-C5: central posterior disc protrusion is seen indenting the cord with no significant neural exit foramina compromise. 4. C5-C6: posterior disc bulge inclined to the left side is seen indenting the cord and encroaching upon the corresponding neural exit foramina, more evident on the left side with bilateral degenerative neurocentral arthropathy. Electronically Signed by: Danielle Mane MD. (03/22/2023 02:05:45 AIR QUALITY TECHNICIAN)
--- NOTE | 2023-03-22 03:09 | XRAY ---
CLINICAL HISTORY:headache COMPARISON:None. TECHNIQUE:Axial noncontrast CT scan of the brain was performed from the skull base to the high parietal region. FINDINGS: Fracture and leftward deviation of nasal bones andminimal subcutaneous air at the right side. Subcutaneous hematoma seen at the right temporoparietal and right frontal regions . The visualized brain parenchyma shows normal appearance. No focal parenchymal abnormalities are demonstrated. Fish-white matter differentiation is maintained. No midline shifts or deformity. No intracerebral or extra axial hematoma. Normal size and configuration of the cerebral ventricles. Normal CT appearance of the posterior fossa structures namely the cerebellar hemispheres, brainstem and cerebellar peduncles. The IACs are unremarkable. The cerebello-pontine angles are clear. The pituitary gland, the pineal gland, the optic chiasm is unremarkable. The osseous structures in the skull base are unremarkable. Polypoidal mucosal thickening of both maxillary sinuses. Mucosal thickening of the ethmoidal, frontal and sphenoidal sinuses. IMPRESSION: 1. Fracture and leftward deviation of nasal bones and minimal subcutaneous air at the right side. 2. Subcutaneous hematoma seen at the right temporoparietal and right frontal regions. Electronically Signed by: Danielle Mane MD. (03/22/2023 02:07:35 JUNIOR MANUFACTURING ENGINEER)
--- NOTE | 2023-03-22 03:13 | XRAY ---
CLINICAL HISTORY:pain COMPARISON:None. TECHNIQUE:Non-Contrast CT scan of the maxillofacial bones was performed, with sagittal and coronal multiplanar reconstruction. FINDINGS: Fracture and leftward deviation of nasal bones and minimal subcutaneous air at the right side. No fractures of the other bones. Polypoidal mucosal thickening of both maxillary sinuses. Mucosal thickening of the ethmoidal, frontal and sphenoidal sinuses. Normal both orbits. IMPRESSION: Fracture and leftward deviation of nasal bones and minimal subcutaneous air at the right side. The [facility] ER was called at [phone] at 02:08 AM PRIVACY OFFICER, 03/22/2023 and Fermin Aguirre was informed about significant findings. Electronically Signed by: Danielle Mane MD. (03/22/2023 02:12:00 PRIVACY OFFICER)
--- NOTE | 2023-03-22 03:19 | XRAY ---
CLINICAL HISTORY:trauma/pain COMPARISON:none TECHNIQUE:CT scan of lumbar spine done. Axial images were obtained with reformatted coronal and sagittal images and submitted for interpretation. FINDINGS: Preserved physiological lumbar lordosis. Multilevel marginal osteophytic lipping of the examined vertebral end plates. Otherwise, intact vertebral bodies and neural arches. No definite fractures could be detected. Anterior longitudinal ligament calcifications opposite L4/5 and to a lesser extent T12-L1 levels. Narrowed L4-L5 and L5-S1 disc spaces. Segmental disc analysis level by level: L1- L2: There is no significant disc herniation or neural foraminal narrowing visualized. Central canal is unremarkable. No sign of lateral recess stenosis. Nerve roots are normal. L2- L3: There is no significant disc herniation or neural foraminal narrowing visualized. Central canal is unremarkable. No sign of lateral recess stenosis. Nerve roots are normal. L3- L4: There is no significant disc herniation or neural foraminal narrowing visualized. Central canal is unremarkable. No sign of lateral recess stenosis. Nerve roots are normal. L4- L5: There is a posterior disc bulge more inclined to the right side seen indenting the theca and encroaching upon the corresponding lateral recesses and neural exit foramina. L5- S1: There is a posterior disc bulge more inclined to the left side seen indenting the theca and encroaching upon the corresponding lateral recesses and left neural exit foramen. No developmental canal stenosis. Normal appearance of the apophyseal joints. Mild degenerative changes of the sacroiliac joints are evident by subtle cortical irregularities and subcortical sclerosis of the anterior aspects of their articular surfaces. No retro paraspinal soft tissue masses. Bilateral renal tiny calculi, the largest (3 mm). IMPRESSION: 1. No definite acute fractures, subluxation, or dislocation. 2. Mild lumbar spondylosis. 3. L4- L5: There is a posterior disc bulge more inclined to the right side seen indenting the theca and encroaching upon the corresponding lateral recesses and neural exit foramina. 4. L5- S1: There is a posterior disc bulge more inclined to the left side seen indenting the theca and encroaching upon the corresponding lateral recesses and left neural exit foramen. Electronically Signed by: Danielle Mane MD. (03/22/2023 02:18:32 RESIDENTIAL DOOR INSTALLER)
[2023-03-22 03:33] VITALS: O2SAT 98
[2023-03-22] MEDS ORDERED: Zithromax 250 MG TABLET PO ONE (04:07)
[2023-03-22] MEDS ORDERED: Zithromax 250 MG TABLET ONE (04:12)
[2023-03-22 04:21] VITALS: BP 138/72; PULSE 89
== END 2023-03-22 04:20 | disposition home or self-care (01) ==
LOC: ED 01:44
DX: S02.2XXA Fracture of nasal bones, initial encounter for closed fracture (principal); S00.93XA Contusion of unspecified part of head, initial encounter; S13.4XXA Sprain of ligaments of cervical spine, initial encounter; S33.5XXA Sprain of ligaments of lumbar spine, initial encounter; Y04.2XXA Assault by strike against or bumped into by another person, initial encounter; J32.8 Other chronic sinusitis; Z72.0 Tobacco use
CPT/HCPCS: 70450; 70486; 72125; 72131; 99283; L0120; A9270-GY